=== PATIENT | female | born 1955 | race African-American/Black ===

== ENCOUNTER 2016-09-25 13:10 | Day surgery (SDC) | payer MEDICARE ==
[~2016-09-25] VITALS: Ht 167.6 cm; Wt 83.5 kg
--- NOTE | 2016-09-25 07:09 | PCM.HPANE ---
Patient Data Surgeon Admitting Provider: Attending Provider:Hien Mcdermott MD Primary Care Physician:Ulises Chou DO Other Provider:Chelly Squiresingham Anesthesia Reason for Visit Personal History Of Colonic Polyps Ht/WT & BMI Body Mass Index Allergies Coded Allergies: Sulfa (Sulfonamide Antibiotics) (Verified Allergy, Severe, 09/25/16) morphine (Verified Allergy, Severe, 09/25/16) doxycycline (Verified Allergy, Unknown, 09/25/16) Past Anesthesia History Anesthesia History: Denies:: Abnormal Airway, Anesthesia Reactions, Difficult Intubation, Fam Anesthesia Reaction, Fam Malignant Hypertherm, Malignant Hyperthermia Diabetes History Hx Diabetes?: No MRSA MRSA: No Medications Reported Medications Bupropion HCl (Zyban)150 Mg Tablet.er150 Mg PO 09/25/16 Trazodone 50 Mg Wyqvjg72 Mg PO HS Ref 0 09/25/16 Albuterol Sulfate (Proair Respiclick)90 Mcg Aer.pow.ba90 Mcg IH 09/25/16 Citalopram 20 Mg Slatns59 Mg PO DAILY Ref 0 09/25/16 Tiotropium Bow (Spiriva Respimat)1.25 Mcg/Actuation Mist.inhal4 Gm IH 09/24/16 Omeprazole 20 Mg Capsule.dr20 Mg PO BID Ref 0 09/24/16 Polyethylene Glycol 3350 (Miralax)17 Gm Powd.pack17 Gm PO 09/24/16 Docusate Sodium 250 Mg Jyrrmii594 Mg PO DAILY PRN For Constipation Ref 0 09/24/16 Albuterol Neb Soln 2.5 Mg/3 Ml Vial.neb2.5 Mg INHALATION Q4H PRN For Shortness of Breath Ref 0 09/24/16 Albuterol-Expunged Drug, Do Not Renew! 90 Mcg/Puff Hfa.aer.ad2 Puff INH Q4-6H PRN #18 GM For Wheezing or Shortness of Breath 07/21/13 Trazodone-Expunged Drug, Do Not Renew! 50 Mg Gklqwl48 Mg PO HS 06/13/13 Bupropion-SR 150 MG Tablet (Zyban-SR 150 MG Tablet)150 Mg Tabsr1 Tab PO BID DO NOT CRUSH TAB..TAKE WITH FOOD 06/13/13 Citalopram-Expunged Drug, Do Not Renew! 20 Mg Bfmbic64 Mg PO DAILY 06/13/13 Discontinued Reported Medications Morphine Sulfate 15 Mg Sospdl06 Mg PO q4hrs 09/24/16 Tramadol Hcl-Expunged Drug, Do Not Renew! (Ultram-Expunged Drug, Do Not Renew!) 50 Mg Yseyxc51 Mg PO Q6H For Mild Pain 10/21/13 Pantoprazole-Expunged Drug, Do Not Renew! (Protonix-Expunged Drug, Do Not Renew! )40 Mg Tablet.dr40 Mg PO DAILY 40 MG 07/21/13 Discontinued Scripts Rblab-Antzop-Suomtfhd Drug, Do Not Renew! (Symbicort 160/4.5mcg-Expunged Drug, Do Not R)1 Puff Inha2 Puff IH BID #1 MDI Ref 3 Prov:Jimy Arechiga MD 06/16/13 History History of ENT Problems?: Yes HEENT History: Positive for:: Cataracts (R. retinal hemorrhage. B. Cataract/ Lazer surgery. ) Dysphagia (RICE) Sinus Problem Denies:: Abnormal Airway Difficult Intubation Hearing Problem Hx of Heart Problems?: No Cardiovascular History: Positive for:: Irregular Heartbeat (mild palpitaton. ) Denies:: AICD Atrial Fibrillation Cardiac Surgery Chest Pain Congestive Heart Failure Edema Heart Murmur Hypertension Pacemaker Thrombophlebitis Valvular Heart Disease Hx of Respiratory Problem?: Yes Respiratory History: Positive for:: Asthma COPD Cough Dyspnea (with ADLs) Emphysema Hemoptysis (2012 (pneumonia - resolved)) Pneumonia Denies:: Chest Surgery Tuberculosis Hx Neurologic Problems?: Yes Neurological History: Positive for:: Headaches Denies:: Alzheimer's Disease CVA Dementia Dizziness Parkinson's Disease Seizures Hx of GI Problems?: Yes Gastrointestinal History: Positive for:: Diverticulitis Gastroesphageal Reflux Gastrointestinal Bleeding (Polypectomy. ) Heartburn Denies:: Cirrhosis Hepatitis Hiatal Hernia Rectal Bleeding Hx of Problems?: Yes Genitourinary History: Positive for:: Urinary Tract Infection Denies:: HX of Hemodialysis Kidney Stones HX of Peritoneal Dialysis: No Female Hx: Positive for:: Endometriosis Pelvic Inflammatory Denies:: Currently Problems with Breasts? Hx Musculoskeletal Problems?: Yes Musculoskeletal History: Positive for:: Back Injury (Fibromyalgia. ) Denies:: Joint Replacement Musculoskeletal Trauma Hx of Psycho/Social Problems?: Yes Psycho Social History: Positive for:: Anxiety Hx Depression Denies:: Bipolar Disorder Suicide Attempt Hx Surgeries?: Yes (GALLBLADDER, GALSTONE REMOVAL,HYSTERECTOMY,UTERINE PROLAPSE ,LAMI, L SHOULD) Hx Any Other Health Problems?: Yes Other History: Positive for:: Hospitalization Denies:: Cancer Endocrine Disease Thyroid Disease History Blood Transfusions: Positive for:: Blood Transfusions Denies:: Blood Transfuse Reaction Hx Diabetes: No Hx Alcohol Use: Yes (OCCAS)Hx Substance Use: No Smoking Status: Current Every Day Smoker Light Tobacco Smoker Have You Smoked inLast 12 mo: Yes Stop/Bang CONSTANTINO Risk Assessment: Low Risk, <3 Yes Risk Assessment Category Category 1A: Patient has history of documented sleep apnea, and HAS NOT received any narcotic, sedative or anesthesia administration during this stay. Category 1B: Patient has history of documented sleep apnea, and HAS received any narcotic , sedative or anesthesia administration during this stay Category 2: Patient has SUSPECTED Obstructive Sleep Apnea, and HAS received any narcotic , sedative or anesthesia administration during this stay. Category 3: Patient has SUSPECTED Obstructive Sleep Apnea and HAS NOT received narcotic, sedative or anesthesia administration during this stay. Category 4: Outpatient in Procedural Areas with known sleep apnea or who screen positive for High Risk via the STOP/BANG questionnaire. Exam Exam General Appearance: Alert, Oriented X3, Cooperative, No Acute Distress HEENT/AIRWAY: MP 2 Lungs: Clear to Auscultation, Normal Air Movement Heart: Exam Unremarkable, Regular Rate/Rhythm, No Murmurs/Rubs/Gallops Plan Impression Patient chart reviewed, patient interviewed and anesthestic plan with risks, benefits, and alternatives discussed, and informed consent obtained. NPO Status: greater than 8 hours for solids and greater than 2 hours for clear liquids ASA Physical Status: ASA2 Mod Systemic Disease Anesthetic Plan: GA Bene/Risks/Altern/Consents: Yes HP Complete Prior to Induction: Yes Malik Landaverde MD Sep 25, 2016 07:09
[~2016-09-25 13:10] MED LIST: ALBU2.5V4 INHALATION; ALBUTHFA INH; BPR150TCR PO; CITA20TA2 PO; DOCU250C2 PO; Lactated Ringer's 1,000 ML IV ONE; MORP15TA PO; OMEP20CA11 PO; POLY17PO6 PO; SYMINH IH; TIOT4MIS5 IH; TRAM-69 PO; TRAZ50TA52 PO
[2016-09-25] MEDS ORDERED: fentaNYL-PF 50 mCg/mL 2 mL Inj ONE (13:11)
[2016-09-25] MEDS ORDERED: Propofol 10,000 mCg/mL 20 mL Inj ONE (13:11)
[2016-09-25 13:34] VITALS: BP 118/69; PULSE 83; RESP 16; O2SAT 94
[2016-09-25] MEDS ORDERED: BUPR150T9 PO (14:53)
[2016-09-25] MEDS ORDERED: ALBU90AE IH (14:53)
[2016-09-25] MEDS ORDERED: TRAZ-115 PO (14:53)
[2016-09-25] MEDS ORDERED: CITA20TA11 PO (14:53)
[2016-09-25] MEDS ORDERED: Lactated Ringer's 1,000 ML IV SCH (15:04)
--- NOTE | 2016-09-25 15:04 | PCM.ANEP1 ---
Post Anesthesia Phase 1 PACU Phase 1 Assessment Vital Signs Vital Signs Date Time Temp Pulse Resp B/P Pulse Ox O2 Delivery O2 Flow Rate FiO2 09/25/16 13:34 36.8 83 16 118/69 94 Room Air Anesthetic Administered: MAC Level of Alertness: Awake, talking HOLDEN's with Equal Strength: Yes Pain: No Oxygen Delivery: Nasal Cannula Lungs: Clear to Auscultation, Normal Air Movement Malik Landaverde MD Sep 25, 2016 15:04
[2016-09-25] MEDS ORDERED: Ondansetron 2 mg/mL 2 mL Inj IVPUSH PRN (15:05)
[2016-09-25] MEDS ORDERED: MetoCLOpramide 5 mg/mL 2 mL Inj IVPUSH PRN (15:05)
--- NOTE | 2016-09-25 15:05 | PCM.ANEP2 ---
Post Anesthesia Evaluation ASA/CMS Post Anesthesia VS in Patient's Normal Range?: Yes Resp Stable; Airway Patent?: Yes CV Function & Hydration Stable: Yes Mental Status Recovered?: Yes Pain control Satisfactory?: Yes N/V Control Satisfactory?: Yes Malik Landaverde MD Sep 25, 2016 15:05
[2016-09-25 15:07] VITALS: BP 108/67; PULSE 75; RESP 16; O2SAT 95
[2016-09-25 15:17] VITALS: BP 123/69; PULSE 74; RESP 16; O2SAT 94
[2016-09-25 15:27] VITALS: BP 104/70; PULSE 86; RESP 16; O2SAT 95
--- NOTE | 2016-09-25 15:41 | ENDO ---
[address] [address] ENDOSCOPY PROCEDURE PATIENT: OBED RIGGS : 1955 MR#: [id number] ADMIT: 09/25/2016 JOB ID: [id number] DATE OF SERVICE: 09/25/2016 PROCEDURE PERFORMED: Colonoscopy. INDICATIONS: History of colon polyps. ASA CLASSIFICATION, MALLAMPATI SCORE AND MEDICATIONS: The patient's ASA classification, Mallampati score and medications as per anesthesia report. INSTRUMENT USED: [id number]-[id number]. PREPARATION QUALITY: Fair. PROCEDURE DETAILS: After informed consent was obtained, the patient was brought into the GI suite, where she was placed on oxygen via nasal cannula and monitored with continuous pulse oximeter, telemetry, and blood pressure monitoring. A time-out was performed. Then, she was placed in the left lateral decubitus position and medications were administered for sedation. Digital rectal exam was performed which was unremarkable. The colonoscope was then inserted into the rectum and advanced under direct visualization to the cecum, which was identified by the presence of the ileocecal valve and appendiceal orifice. Once the cecum was reached, the colonoscope was withdrawn back into the rectum, as the mucosa and lumen were examined. In the rectum, retroflexion was performed. Following retroflexion, remaining air in the rectum was suctioned, and procedure was completed. FINDINGS: 1. Scattered diverticula were seen throughout the left colon. 2. Small internal hemorrhoids were noted on retroflexion. IMPRESSION: 1. Left-sided diverticulosis. 2. Small internal hemorrhoids. RECOMMENDATIONS: 1. Fiber-rich diet. 2. Follow up in GI clinic as needed. 3. Repeat colonoscopy in five years. COMPLICATIONS: None. ESTIMATED BLOOD LOSS: Zero.
[2017-01-13] MEDS ORDERED: WARF5TAB7 PO ×2 (14:11)
[2017-01-13] MEDS ORDERED: MORP15TA PO (14:11)
== END 2016-09-25 23:59 | disposition home or self-care (01) ==
LOC: END 13:10
PROVIDERS: ATTEND Internal Medicine Gastroenterology
DX: Z12.11 Encounter for screening for malignant neoplasm of colon (principal); Z86.010 Personal history of colon polyps; K57.30 Diverticulosis of large intestine without perforation or abscess without bleeding; K64.8 Other hemorrhoids; K59.00 Constipation, unspecified; J44.9 Chronic obstructive pulmonary disease, unspecified; F32.9 Major depressive disorder, single episode, unspecified; K21.9 Gastro-esophageal reflux disease without esophagitis; M47.896 Other spondylosis, lumbar region; J45.909 Unspecified asthma, uncomplicated; F41.9 Anxiety disorder, unspecified; F17.210 Nicotine dependence, cigarettes, uncomplicated; J43.9 Emphysema, unspecified
CPT/HCPCS: G0105; J2250; J3010; J7120

== ENCOUNTER 2016-11-07 11:52 | Emergency (ER) | payer MEDICARE ==
[~2016-11-07] VITALS: Ht 167.6 cm; Wt 88.0 kg
[~2016-11-07 11:52] MED LIST changes: +ALBU90AE IH; +BUPR150T9 PO; +CITA20TA11 PO; -Lactated Ringer's 1,000 ML IV ONE; -MORP15TA PO; -SYMINH IH; -TRAM-69 PO; +TRAZ-115 PO
[2016-11-07 12:16] VITALS: BP 101/67; PULSE 74; RESP 16; O2SAT 97
--- NOTE | 2016-11-07 12:28 | ED.REPORT ---
HPI-General Illness Date of Service Nov 07, 2016 ED Provider: Micheal Blum MD The patient is a 61 year old female with history of COPD on 2 L, remote pulmonary embolism (not currently on blood thinners), spinal stenosis, fibromyalgia, GERD, and degenerative disc disease, who presents to the emergency department with multiple complaints. She complains of left lower extremity swelling, shortness of breath/wheezing, chronic back pain, head pain ( "feels like something is draining out of my brain"), vague, mild abdominal pain (today), and generalized weakness. Her symptoms are intermittent. At this time she is feeling okay. Her main concern today is the lower extremity swelling. She denies chest pain or pleuritic pain. She denies recent surgeries or long periods of immobilization. She has been noticing that she is wheezing more and feels that her COPD is acting up. She has not been on any steroids recently. Nursing Notes Stated Complaint: LEFT ANKLE PAIN Chief Complaint: Female Abdominal Pain Nursing Notes Reviewed: Yes Allergies: Coded Allergies: Sulfa (Sulfonamide Antibiotics) (Verified Allergy, Severe, 11/07/16) doxycycline (Verified Allergy, Unknown, 11/07/16) Scheduled Bupropion-SR 150 MG Tablet (Zyban-SR 150 MG Tablet) 150 Mg Tabsr 1 TAB PO BID DO NOT CRUSH TAB..TAKE WITH FOOD Citalopram (Citalopram) 20 Mg Tablet 20 MG PO DAILY Citalopram-Expunged Drug, Do Not Renew! (Citalopram-Expunged Drug, Do Not Renew! ) 20 Mg Tablet 20 MG PO DAILY Omeprazole (Omeprazole) 20 Mg Capsule.dr 20 MG PO BID Prednisone (PredniSONE) 20 Mg Tablet 40 MG PO DAILY Trazodone (Trazodone) 50 Mg Tablet 50 MG PO HS Trazodone-Expunged Drug, Do Not Renew! (Trazodone-Expunged Drug, Do Not Renew!) 50 Mg Tablet 50 MG PO HS Scheduled PRN Albuterol Neb Soln (Albuterol Neb Soln) 2.5 Mg/3 Ml Vial.neb 2.5 MG INHALATION Q4H PRN PRN For Shortness of Breath Albuterol-Expunged Drug, Do Not Renew! (Albuterol-Expunged Drug, Do Not Renew!) 90 Mcg/Puff Hfa.aer.ad 2 PUFF INH Q4-6H PRN PRN For Wheezing or Shortness of Breath Docusate Sodium (Docusate Sodium) 250 Mg Capsule 100 MG PO DAILY PRN PRN For Constipation Miscellaneous Medications Albuterol Sulfate (Proair Respiclick) 90 Mcg Aer.pow.ba 90 MCG IH Bupropion HCl (Zyban) 150 Mg Tablet.er 150 MG PO Polyethylene Glycol 3350 (Miralax) 17 Gm Powd.pack 17 GM PO Tiotropium Purvis (Spiriva Respimat) 1.25 Mcg/Actuation Mist.inhal 4 GM IH General Time Seen by MD: 12:27 Chief Complaint Multip medical complaints Hx Obtained From: Patient Arrived By: Walk-in Sudden in Onset?: No Symptom Duration: Since onset Location: : Abdomen: Head Quality: Painful, Sharp Severity: Current: Mild Severity: Maximum: Moderate Recent Healthcare: No recent hospitalization Past Medical History Past Medical History 1. COPD. 2. Spinal stenosis. 3. Fibromyalgia. 4. History of endometriosis, status post hysterectomy and bilateral oophorectomy. 5. GERD. 6. Questionable history of peptic ulcer disease. 7. History of retinal hemorrhage status post multiple eye surgeries. 8. Degenerative joint disease. 9. Hx of pulmonary embolism Reports: COPD Past Surgical History Rotator Cuff surgery Cholecystectomy with subsequent gallstone removal Hysterectomy and bilateral oophorectomy Multiple eye surgeries Vaginal prolapse status post surgical repair in 1984. Status post cataract removal in 2012 bilaterally. Status post colonoscopy in 2009 with polypectomy. Lumbar sugery in 2006 Family History Noncontributory Smoking History Current Every Day Smoker, Light Tobacco Smoker Social History Alcohol Use: Denies alcohol use Other Social History: Local resident Review of Systems Full Review of Systems Constitutional: Reports: Weakness - generalized Respiratory: Reports: Shortness of breath, Denies: Pleuritic pain Cardiovascular: Denies: Chest pain GI: Reports: Abdominal pain Musculoskeletal: Reports: Back pain, Extremity swelling Neurologic: Reports: Headache Complete sys rev & neg: except as marked. Physical Exam Vital Signs Vital Signs Date Time Temp Pulse Resp B/P Pulse Ox O2 Delivery O2 Flow Rate FiO2 11/07/16 12:16 36.4 74 16 101/67 97 Nasal Cannula Initial VS: Reviewed Head / Eyes: Atraumatic, Normocephalic, PERRL ENT: Mucous membranes moist, Conjunctiva normal, No scleral icterus Neck: Supple, Non-tender, Full range of motion Abdomen / GI: Soft, Non-tender, No guarding, No rebound, No distention Extremities: Vascular intact, Neuro intact Skin: Warm, Dry, No cyanosis Neurologic: Alert, Oriented, Nonfocal Psychiatric: Mood/affect normal, Behavior normal, Normal thought content General/Constitutional: Awake, Alert, Cooperative Respiratory / Chest: No respiratory distress Diminished Breath Sounds: Positive: Decreased bilateral Wheezing / Retractions: Positive: Wheezing moderate (scattered) Cardiovascular: Heart rate NL, Regular rhythm, Heart sounds NL, No murmurs, No rubs, Cap refill not delayed, Peripheral circulation NL Lower Extremity / Pelvis / MS: Neurologic intact, Vascular intact On the right side there is no calf swelling or tenderness. The left calf is slightly swollen compared to the right with some tenderness. Interpretation & Diagnostics Lab Results Interpretation Result Diagram: 11/07/16 1319 11/07/16 1319 Test 11/07/16 13:19 White Blood Count 3.6th/mm3 (3.8-10.1) Red Blood Count 4.38mil/mm3 (3.90-5.20) Hemoglobin 11.8g/dL (12.0-15.6) Hematocrit 37.0% (35.0-46.0) Mean Corpuscular Volume 84.5fL (81-100) Mean Corpuscular Hemoglobin 26.9pg (27.0-35.0) Mean Corpuscular Hemoglobin Concent 31.9% (32.0-37.0) Red Cell Distribution Width 14.3% (12.3-15.4) Platelet Count 186bil/L (150-400) Neutrophils (%) (Auto) 41.7% (40-74) Lymphocytes (%) (Auto) 43.9% (14-46) Monocytes (%) (Auto) 9.7% (4-12) Eosinophils (%) (Auto) 3.3% (0-5) Basophils (%) (Auto) 1.1% (0-3) Prothrombin Time 10.0sec (8.1-12.5) Prothromb Time International Ratio 0.94ratio Sodium Level 137mEq/L (134-144) Potassium Level 4.4mEq/L (3.5-5.2) Chloride Level 99mEq/L (97-108) Carbon Dioxide Level 25mmol/L (18-29) Blood Urea Nitrogen 9mg/dL (8-27) Creatinine 0.75mg/dL (0.57-1.00) Estimat Glomerular Filtration Rate 101mL/min (>59) Glucose Level 90mg/dL (60-99) Calcium Level 9.4mg/dL (8.5-10.1) Total Bilirubin 0.6mg/dL (0.0-1.2) Aspartate Amino Transf (AST/SGOT) 26U/L (0-50) Alanine Aminotransferase (ALT/SGPT) 16U/L (0-32) Alkaline Phosphatase 106U/L (25-165) Troponin T < 0.010ug/L (0.0-0.011) Pro-B-Type Natriuretic Peptide 34.65pg/mL (0-287) Total Protein 7.1g/dL (6.4-8.4) Albumin 3.9g/dL (3.4-5.0) ECG Interpretation ECG Interpretation: Sinus rhythm with a rate of 64 bpm Anteroseptal Q waves present No acute ST segment or T wave abnormalities No prior EKGs available for comparison Time: 13:14 Interpreted by: ED physician X-Ray Chest Interpretation Chest Xray Interpretation: IMPRESSION: No acute cardiopulmonary disease. Dictated by: Jared CHATMAN Interpreted: Belinda Hernandez MD on 11/07/2016 at 14:20 Interpretation / Wet Read by: Interpret - Radiologist Re-Eval/Medical Decision Med Decision/Clinical Course The patient is a 61 year old female with history of COPD on 2 L, remote pulmonary embolism (not currently on blood thinners), spinal stenosis, fibromyalgia, GERD, and degenerative disc disease, who presents to the emergency department with multiple complaints. She complains of left lower extremity swelling, shortness of breath/wheezing, chronic back pain, head pain ( "feels like something is draining out of my brain"), vague, mild abdominal pain (today), and generalized weakness. Her symptoms are intermittent. At this time she is feeling okay. Her main concern today is the lower extremity swelling. She denies chest pain or pleuritic pain. She denies recent surgeries or long periods of immobilization. She has been noticing that she is wheezing more and feels that her COPD is acting up. She has not been on any steroids recently. Emergency department the patient is afebrile with stable vital signs and in no apparent distress. She has good oxygen saturation on 2 L by nasal cannula which is her baseline oxygen requirement. Examination of the left lower extremity reveals mild Swelling/tenderness. Treated with Duonebs and prednisone. Thereafter, she reported significant symptomatic improvement. Las: WBC 3.6, hct 37, coag studies normal, CMP unremarkable, troponin negative, BNP WNL. CXR: Obtained, reviewed and interpreted by myself shows no evidence of infiltrates, effusions or pneumothorax. Cardiac and mediastinal silhouette normal. No bony or soft tissue abnormalities. EKG was obtained and interpreted by myself as documented above. US: negative for DVT Overall presentation seems most consistent with COPD exacerbation. She responded nicely to bronchodilators and steroids. She is without tachycardia, tachypnea and ultrasound reveals no DVT. My suspicion for pulmonary embolism is relatively low. The overall clinical picture does not support diagnosis of pulmonary embolism and I do not feel that obtaining a CT angiogram of the chest is immediately indicated. No evidence of pneumonia. Overall presentation not consistent with acute coronary syndrome and initial EKG and troponin are reassuring. At this time, I feel the patient is appropriate for discharge home. She will be treated with a five-day course of prednisone has been advised to continue her nebulizer treatments. She will follow up closely with her primary care physician. Prior to discharge follow-up and return precautions were reviewed in detail with the patient who verbalized understanding and agreement with the plan. The patient was discharged in stable condition. Source of Hx: Old records Time of Eval: 14:48 Re-Evaluation/Progress Note: Rechecked the patient. Discussed results, diagnosis, and plan for discharge. All questions were addressed. Counseled Regarding: Diagnosis, Lab results Discharge & Departure Primary Impression: Left leg swelling Additional Impressions: COPD exacerbation History of pulmonary embolism Back pain Back pain location: low back pain Chronicity: chronic Back pain laterality : unspecified Sciatica presence: with sciatica presence unspecified Qualified Code: M54.5 - Low back pain Disposition: Home Discharge Condition All VS Reviewed: Yes Condition: Stable Additional Instructions: hailey you for seeking care at the emergency room. Our primary goal today in the ED was to evaluate you for any life-threatening conditions. Your evaluation was reassuring. Please see no signs that you have a blood clot in your leg today. I think you are having a COPD exacerbation and I would like you to complete the course of prednisone as prescribed. He should continue to use her home nebulizers. You should follow-up with your primary doctor in the next week. You should return to the ED immediately if you develop any worsening symptoms, swelling, fevers, vomiting, cough, shortness of breath, chest pain, lightheadedness, weakness or any other concerning signs or symptoms. Thank you for letting us partake in your care today. Referrals: Ulises Chou DO (PCP) Scribe Attestation Portions of this note were transcribed by Maddy Chamorro. I, Dr. Blum personally performed the history, physical exam and medical decision-making; I reviewed and confirmed the accuracy of the information in the transcribed note. Signed by: Jacinto Miramontes, 11/07/2016 at 1500. copies to: Ulises Chou Beck O MD Nov 07, 2016 12:28 Maddy Chamorro Nov 07, 2016 12:34
[2016-11-07] MEDS ORDERED: 0.9% Sodium Chloride 1,000 ML IV ONE (13:00)
[2016-11-07] MEDS ORDERED: Albuterol-Ipratropium 3 mL Inhalation Solution NEB ONE (13:00)
[2016-11-07] MEDS ORDERED: predniSONE 20 mg Tablet PO ONE (13:00)
[2016-11-07 13:40] VITALS: BP 113/69; PULSE 65; RESP 13; O2SAT 100
[2016-11-07 13:42] LABS: BASOPHILS % (AUTO) 1.1 % (0-3); EOSINOPHILS % (AUTO) 3.3 % (0-5); MONOCYTES % (AUTO) 9.7 % (4-12); Mean Corpuscular Hemoglobin 26.9 pg (27.0-35.0); Mean Corpuscular Volume 84.5 fL (81-100); NEUTROPHILS % (AUTO) 41.7 % (40-74); Platelet Count 186 bil/L (150-400)
[2016-11-07 14:02] LABS: INR 0.94 ratio
[2016-11-07 14:18] LABS: TROPONIN T < 0.010 ug/L (0.0-0.011)
--- NOTE | 2016-11-07 14:20 | DRSVH ---
PROCEDURE: X-RAY CHEST, TWO VIEWS ([id number]) INDICATIONS: SHORTNESS OF BREATH TECHNIQUE: 2 views of the chest were acquired. COMPARISON: [facility], CR, XR CHEST 2VW, 09/30/2016, 12:09. FINDINGS: Surgical changes and devices: None. Lungs and pleura: No pleural effusions or pneumothorax. Lungs are clear. Mediastinum: Mediastinal contours are normal. Heart size is normal. Bones and chest wall: No suspicious bony abnormalities. Soft tissues appear unremarkable. IMPRESSION: No acute cardiopulmonary disease. Dictated by: Jared Mir [facility] Interpreted: Belinda Hernandez MD on 11/07/2016 at 14:20 Transcribed by: SANDEEP on 11/07/2016 at 14:20 Approved by: Belinda Hernandez MD, PhD on 11/07/2016 at 17:04
[2016-11-07] MEDS ORDERED: PRE20 PO (14:49)
[2016-11-07 15:57] VITALS: BP 125/75; PULSE 72; RESP 16; O2SAT 96
--- NOTE | 2016-11-07 15:58 | DRSVH ---
PROCEDURE: US VEINOUS LEG DUPLEX UNILATERAL, LEFT INDICATIONS: assess for dvt TECHNIQUE: Real-time imaging, as well as color and pulse Doppler interrogation, were performed of the lower extr emity deep veins from the inguinal ligament to the popliteal fossa. COMPARISON: None. FINDINGS: The deep veins are normally compressible, and free of intraluminal thrombus. Color and pu lse Doppler demonstrate normal phasic intraluminal flow. There is normal augmentation response to di stal compression maneuver. IMPRESSION: Negative for deep venous thrombosis. Note: Concordant preliminary findings given by the dinkey dispatcher upon the completion of the examination to Dr. Blum. Dictated by: Nino Cabrera M.D. on 11/07/2016 at 14:55 Approved by: Nino Cabrera M.D. on 11/07/2016 at 14:56
[2017-01-13] MEDS ORDERED: WARF5TAB7 PO ×2 (14:11)
[2017-01-13] MEDS ORDERED: MORP15TA PO (14:11)
== END 2016-11-07 14:59 | disposition home or self-care (01) ==
LOC: SED 11:52
DX: M79.89 Other specified soft tissue disorders (principal); J44.1 Chronic obstructive pulmonary disease with (acute) exacerbation; M54.5 Low back pain; K21.9 Gastro-esophageal reflux disease without esophagitis; F17.200 Nicotine dependence, unspecified, uncomplicated; Z88.2 Allergy status to sulfonamides; Z88.1 Allergy status to other antibiotic agents; Z86.711 Personal history of pulmonary embolism
CPT/HCPCS: 36415; 71020; 80053; 83880; 84484; 85025; 85610; 93005; 93970; 94664; 96360; 96361; 99285; J7030; J7620

== ENCOUNTER 2016-11-09 04:14 | Inpatient (IN) | payer MEDICARE ==
[2016-11-09] VITALS (12 sets, daily range): BP systolic 103–148; BP diastolic 66–83; PULSE 60–89; RESP 16–22; O2SAT 94–100
[~2016-11-09] VITALS: Ht 167.6 cm; Wt 86.3 kg
[~2016-11-09 04:14] MED LIST changes: +PRE20 PO
--- NOTE | 2016-11-09 04:54 | ED.REPORT ---
HPI- Female Date of Service Nov 09, 2016 ED Provider: Tad Coffey MD Nursing Notes Stated Complaint: POSS BLOOD CLOT/ LEFT ARM Chief Complaint: General Complaint Nursing Notes Reviewed: Yes Allergies: Coded Allergies: Sulfa (Sulfonamide Antibiotics) (Verified Allergy, Severe, 11/07/16) doxycycline (Verified Allergy, Unknown, 11/07/16) Scheduled Bupropion-SR 150 MG Tablet (Zyban-SR 150 MG Tablet) 150 Mg Tabsr 1 TAB PO BID DO NOT CRUSH TAB..TAKE WITH FOOD Citalopram (Citalopram) 20 Mg Tablet 20 MG PO DAILY Citalopram-Expunged Drug, Do Not Renew! (Citalopram-Expunged Drug, Do Not Renew! ) 20 Mg Tablet 20 MG PO DAILY Omeprazole (Omeprazole) 20 Mg Capsule.dr 20 MG PO BID Prednisone (PredniSONE) 20 Mg Tablet 40 MG PO DAILY Trazodone (Trazodone) 50 Mg Tablet 50 MG PO HS Trazodone-Expunged Drug, Do Not Renew! (Trazodone-Expunged Drug, Do Not Renew!) 50 Mg Tablet 50 MG PO HS Scheduled PRN Albuterol Neb Soln (Albuterol Neb Soln) 2.5 Mg/3 Ml Vial.neb 2.5 MG INHALATION Q4H PRN PRN For Shortness of Breath Albuterol-Expunged Drug, Do Not Renew! (Albuterol-Expunged Drug, Do Not Renew!) 90 Mcg/Puff Hfa.aer.ad 2 PUFF INH Q4-6H PRN PRN For Wheezing or Shortness of Breath Docusate Sodium (Docusate Sodium) 250 Mg Capsule 100 MG PO DAILY PRN PRN For Constipation Miscellaneous Medications Albuterol Sulfate (Proair Respiclick) 90 Mcg Aer.pow.ba 90 MCG IH Bupropion HCl (Zyban) 150 Mg Tablet.er 150 MG PO Polyethylene Glycol 3350 (Miralax) 17 Gm Powd.pack 17 GM PO Tiotropium [place] (Spiriva Respimat) 1.25 Mcg/Actuation Mist.inhal 4 GM IH General Time Seen by : 05:16 Past Medical History Past Medical History 1. COPD. 2. Spinal stenosis. 3. Fibromyalgia. 4. History of endometriosis, status post hysterectomy and bilateral oophorectomy. 5. GERD. 6. Questionable history of peptic ulcer disease. 7. History of retinal hemorrhage status post multiple eye surgeries. 8. Degenerative joint disease. 9. Hx of pulmonary embolism Reports: COPD Past Surgical History Rotator Cuff surgery Cholecystectomy with subsequent gallstone removal Hysterectomy and bilateral oophorectomy Multiple eye surgeries Vaginal prolapse status post surgical repair in 1984. Status post cataract removal in 2011 bilaterally. Status post colonoscopy in 2009 with polypectomy. Lumbar sugery in 2006 Family History Noncontributory Smoking History Current Every Day Smoker, Light Tobacco Smoker Social History Alcohol Use: Denies alcohol use Other Social History: Local resident Review of Systems Musculoskeletal: Reports: Extremity pain, Extremity swelling Complete sys rev & neg: except as marked. Physical Exam Initial Vital Signs Vital Signs (First) Date Time Temp Pulse Resp B/P Pulse Ox O2 Delivery O2 Flow Rate FiO2 11/09/16 04:19 36.6 86 16 127/83 99 Nasal Cannula 2 Discharge & Departure Referrals: Ulises Chou DO (PCP) Tad Coffey MD Nov 09, 2016 04:54 Katherine Mcconnell Nov 09, 2016 05:27
--- NOTE | 2016-11-09 06:21 | ED.REPORT ---
HPI-Extremity Problem Upper Date of Service Nov 09, 2016 ED Provider: Juarez Brandon DO Pt is a 61 y.o. female with a hx of COPD and PE who presents to the ED c/o left arm swelling. Pt reports that she has noticed the swelling for several weeks but she states it was worse this morning and appeared red. She also notes increased SOB, claiming that she has had to use her rescue inhaler 3 times in the past 12 hours and she typically only uses it twice a day. Pt is on home O2. She was seen in the ER on 11/07/16 for left leg swelling and a DVT work-up was performed, it was negative and she was discharged home. She denies current blood thinners. She does have a remote history of pulmonary embolism which occurred postoperatively, she was treated with Coumadin for an extended period of time and has subsequently had Coumadin discontinued. Pt is a poor historian. Nursing Notes Stated Complaint: POSS BLOOD CLOT/ LEFT ARM Chief Complaint: General Complaint Nursing Notes Reviewed: Yes Allergies: Coded Allergies: Sulfa (Sulfonamide Antibiotics) (Verified Allergy, Severe, 11/07/16) doxycycline (Verified Allergy, Unknown, 11/07/16) Scheduled Bupropion-SR 150 MG Tablet (Zyban-SR 150 MG Tablet) 150 Mg Tabsr 1 TAB PO BID DO NOT CRUSH TAB..TAKE WITH FOOD Citalopram (Citalopram) 20 Mg Tablet 20 MG PO DAILY Citalopram-Expunged Drug, Do Not Renew! (Citalopram-Expunged Drug, Do Not Renew! ) 20 Mg Tablet 20 MG PO DAILY Omeprazole (Omeprazole) 20 Mg Capsule.dr 20 MG PO BID Prednisone (PredniSONE) 20 Mg Tablet 40 MG PO DAILY Trazodone (Trazodone) 50 Mg Tablet 50 MG PO HS Trazodone-Expunged Drug, Do Not Renew! (Trazodone-Expunged Drug, Do Not Renew!) 50 Mg Tablet 50 MG PO HS Scheduled PRN Albuterol Neb Soln (Albuterol Neb Soln) 2.5 Mg/3 Ml Vial.neb 2.5 MG INHALATION Q4H PRN PRN For Shortness of Breath Albuterol-Expunged Drug, Do Not Renew! (Albuterol-Expunged Drug, Do Not Renew!) 90 Mcg/Puff Hfa.aer.ad 2 PUFF INH Q4-6H PRN PRN For Wheezing or Shortness of Breath Docusate Sodium (Docusate Sodium) 250 Mg Capsule 100 MG PO DAILY PRN PRN For Constipation Miscellaneous Medications Albuterol Sulfate (Proair Respiclick) 90 Mcg Aer.pow.ba 90 MCG IH Bupropion HCl (Zyban) 150 Mg Tablet.er 150 MG PO Polyethylene Glycol 3350 (Miralax) 17 Gm Powd.pack 17 GM PO Tiotropium [place] (Spiriva Respimat) 1.25 Mcg/Actuation Mist.inhal 4 GM IH General Time Seen by MD: 06:20 Chief Complaint Arm injury left Hx Obtained From: Patient Arrived By: Walk-in Onset Occurred: Onset unknown Severity: Current: No pain currently Past Medical History Past Medical History 1. COPD. 2. Spinal stenosis. 3. Fibromyalgia. 4. History of endometriosis, status post hysterectomy and bilateral oophorectomy. 5. GERD. 6. Questionable history of peptic ulcer disease. 7. History of retinal hemorrhage status post multiple eye surgeries. 8. Degenerative joint disease. 9. Hx of pulmonary embolism Reports: COPD Past Surgical History Rotator Cuff surgery Cholecystectomy with subsequent gallstone removal Hysterectomy and bilateral oophorectomy Multiple eye surgeries Vaginal prolapse status post surgical repair in 1984. Status post cataract removal in 2011 bilaterally. Status post colonoscopy in 2009 with polypectomy. Lumbar sugery in 2006 Family History Noncontributory Smoking History Current Every Day Smoker, Light Tobacco Smoker Social History Alcohol Use: Denies alcohol use Other Social History: Local resident Review of Systems Musculoskeletal: Reports: Extremity swelling (Left arm) Complete sys rev & neg: except as marked. Respiratory: Reports: Shortness of breath Physical Exam Initial Vital Signs Vital Signs (First) Date Time Temp Pulse Resp B/P Pulse Ox O2 Delivery O2 Flow Rate FiO2 11/09/16 04:19 36.6 86 16 127/83 99 Nasal Cannula 2 Initial VS: Reviewed Head / Eyes: Atraumatic, Normocephalic Abdomen / GI: No distention Lower Extremities: Vascular intact, Neuro intact Skin: Warm, Dry, No cyanosis Neurologic: Alert, Oriented, Nonfocal Psychiatric: Mood/affect normal, Behavior normal, Normal thought content General/Constitutional: Awake, Alert, No acute distress, Well appearing, Well developed, Well hydrated, Well nourished, Not toxic appearing Appearance / Presentation: Positive: Obese Neck: Atraumatic, Supple Respiratory / Chest: Atraumatic, Breath sounds NL, Breath sounds = bilat, No respiratory distress Pt is wearing a nasal canulla Cardiovascular: Heart rate NL, Regular rhythm, Heart sounds NL, Peripheral circulation NL Upper Extremity / MS: Atraumatic, No erythema, No deformity, Neurologic intact , Vascular intact Mild fullness of left anticubital fossa No significant asymmetric edema to bilateral arms Interpretation & Diagnostics Lab Results Interpretation Test 11/09/16 08:53 Hold Vergara Top Tube Received (Received) ECG Interpretation Time: 08:55 Interpreted by: ED physician Normal ECG Interpretation: Normal rate (59), Normal sinus rhythm, No change from prior ECGs (11/07/16) US Soft Tissue/Musculoskeletal IMPRESSION: No evidence of left upper extremity DVT. Dictated by: Gino Donis M.D. on 11/09/2016 at 8:33 Approved by: Gino Donis M.D. on 11/09/2016 at 8:33 CT Chest Interpretation IMPRESSION: 1. Right sided pulmonary emboli as described above. 2. Severe emphysema. 3. Findings discussed with Dr. Brandon on 11.09.16 at 0830 hrs. Dictated by: Gino Donis M.D. on 11/09/2016 at 8:29 Approved by: Gino Donis M.D. on 11/09/2016 at 8:33 Re-Eval/Medical Decision Med Decision/Clinical Course Likely acute pulmonary embolism. Patient will be admitted. Source of Hx: Old records Re-Evaluation/Progress : Time of Eval: 08:46 Re-Evaluation/Progress Note: Pt rechecked. Discussed CT results and plan for admit, pt understands and agrees with plan. Consultation : Referral / Consult Name: Prince Sheth MD Call Returned at: 09:02 Grain Blender: Will see patient, Agrees with eval, Agrees with plan, Accepts admit Note: Discussed pt condition, accepts admit. Counseled Regarding: Diagnosis, Lab results, Need for admission Discharge & Departure Impression: Primary Impression: Pulmonary embolism Pulmonary embolism type: other Chronicity: acute Disposition: ADMITTED TO HOSPITAL Discharge Condition All VS Reviewed: Yes Condition: Improved Referrals: Ulises Chou DO (PCP) Scribe Attestation Portions of this note were transcribed by Abraham Velasquez I Dr. Brandon personally performed the history, physical exam and medical decision-making; I reviewed and confirmed the accuracy of the information in the transcribed note. Signed by: Jacinto Arnold, 11/09/16 and 0911. copies to: Ulises Chou Timothy S DO Nov 09, 2016 06:21 ABRAHAM GRIMALDO Nov 09, 2016 06:28
--- NOTE | 2016-11-09 08:35 | DRSVH ---
PROCEDURE: CT ANGIO CHEST PULMONARY EMBOLISM ([id number]) INDICATIONS: dyspnea, history of PE TECHNIQUE: After the administration of intravenous contrast, 2 mm thick sections acquired from the pulmonary api ham to the posterior costophrenic angles. 3-dimensional maximum intensity projection (MIP) coronal a nd sagittal reformats were then acquired through the thorax. For radiation dose reduction, the follo wing was used: automated exposure control, adjustment of mA and/or kV according to patient size. COMPARISON: [facility], CT, CT CHEST WO CON, 05/01/2016, 11:03. FINDINGS: Image quality: Excellent. Pulmonary arteries: Pulmonary arteries are normal in size. There are filling defects seen within the right distal main pulmonary artery, extending into the segmental branches of the right upper lobe. Lungs and pleura: Severe emphysema. Biapical blebs. No pleural effusions or pneumothorax. Central an d peripheral airways are patent. Mediastinum: Heart size is normal, without pericardial effusion. No mediastinal or hilar adenopathy . Thoracic aorta is normal in caliber and enhancement. Esophagus is normal in caliber, without hiat al hernia. Bones and chest wall: No suspicious bony lesions. Ribs and thoracic spine appear intact throughout. Thyroid gland is within normal limits. No axillary or supraclavicular adenopathy. Abdomen: Visualized upper abdominal solid organs appear normal in the early arterial phase of enhanc ement. IMPRESSION: 1. Right sided pulmonary emboli as described above. 2. Severe emphysema. 3. Findings discussed with Dr. Brandon on 11.09.16 at 0830 hrs. Dictated by: Gino Donis M.D. on 11/09/2016 at 8:29 Approved by: Gino Donis M.D. on 11/09/2016 at 8:33
--- NOTE | 2016-11-09 08:35 | DRSVH ---
PROCEDURE: US VENOUS ARM DUPLEX UNILATERAL, LEFT INDICATIONS: left arm clot TECHNIQUE: Real-time imaging, as well as color and pulse Doppler interrogation, was performed of the left upper extremity deep veins from the inferior neck to the antecubital fossa. COMPARISON: None. FINDINGS: The internal jugular vein, visualized portions of the subclavian vein, axillary, and brach ial veins are free of intraluminal thrombus. Where physically possible, the veins are normally compr essible. Color and pulse Doppler demonstrate normal intraluminal flow, with expected phasicity and p ulsatility. Additional scanning of the cephalic and basilic veins of the superficial system demonstr ate normal compressibility, without thrombus. IMPRESSION: No evidence of left upper extremity DVT. Dictated by: Gino Donis M.D. on 11/09/2016 at 8:33 Approved by: Gino Donis M.D. on 11/09/2016 at 8:33
[2016-11-09] MEDS ORDERED: Heparin 25K Unit/500mL 0.45 NS 25,000 UNIT in IV Premix 1 EACH IV ONE (08:40)
[2016-11-09] MEDS ORDERED: Heparin 5,000 Unit/mL Inj IVPUSH ONE (08:40)
[2016-11-09] MEDS ORDERED: Polyethylene Glycol (PEG) 17 Gm Powder PO PRN (09:20)
[2016-11-09] MEDS ORDERED: Alum-Mag Hydrox-Simeth 30 mL Suspension PO PRN ×2 (09:20)
[2016-11-09] MEDS ORDERED: Ondansetron 2 mg/mL 2 mL Inj IVPUSH PRN ×2 (09:20)
[2016-11-09] MEDS ORDERED: SYMINH INHALATION (09:26)
[2016-11-09] MEDS ORDERED: OXYC-474 PO (09:26)
[2016-11-09 10:26] LABS: BASOPHILS % (AUTO) 0.6 % (0-3); EOSINOPHILS % (AUTO) 0.4 % (0-5); MONOCYTES % (AUTO) 7.3 % (4-12); Mean Corpuscular Hemoglobin 27.2 pg (27.0-35.0); Mean Corpuscular Volume 82.9 fL (81-100); NEUTROPHILS % (AUTO) 51.7 % (40-74); Platelet Count 185 bil/L (150-400)
[2016-11-09] MEDS ORDERED: Albuterol-Ipratropium 3 mL Inhalation Solution NEB PRN (10:45)
[2016-11-09] MEDS ORDERED: Albuterol 1.25 mg/3 mL Inhalation Solution NEB PRN (10:45)
--- NOTE | 2016-11-09 10:46 | NUR ---
Admit Pt arrived via stretcher to [facility] room [facility] via ED, report received from Josephine Soriano RN. Pt A/O x 4, was able to transfer self to bed, however became very SOB, requested RIAZ roque MD paged, received new orders for NEBs now. Will continue to monitor.
[2016-11-09] MEDS ORDERED: Heparin 5,000 Unit/mL Inj IVPUSH PRN (11:25)
[2016-11-09] MEDS: Albuterol-Ipratropium 3 mL Inhalation Solution NEB SCH ×3 (11:30→20:09)
[2016-11-09] MEDS: predniSONE 20 mg Tablet PO SCH (12:05)
[2016-11-09] MEDS ORDERED: LORazepam 1 mg Tablet PO ONE (12:20)
--- NOTE | 2016-11-09 12:21 | PCM.HPMED ---
Subjective Date of Service Nov 09, 2016 Primary Provider: Admitting Physician: Prince Sheth MD Primary Care Physician: Ulises Chou DO Attending Physician: Prince Sheth MD Chief Complaint: Difficulty breathing History of Present Illness: Kiet Quintana is a 61 year old woman with past medical history significant for severe emphysema and prior questionably unprovoked PE 18 months ago who presented to the [facility] ED due to difficulty breathing and right arm swelling. The patient was seen in the ED yesterday with complaint of left leg swelling and shortness of breath but was discharged back home with diagnosis of COPD exacerbation after a negative lower extremity U/S. The patient states that for the last few days she has been feeling like she "has a blood clot." She cannot elucidate the symptoms further but did note worsening shortness of breath and felt like she did with her prior PE. She noticed left ankle swelling and discoloration of that ankle as well patches of her skin discolored. Patient reports that she has noticed the swelling of her arm for several weeks but she states it was worse this morning and appeared red. Her last PE occurred 18 months ago at [facility] after her back surgery for spinal stenosis. At the time the PE was attributed to the surgery. The patient had an 8 day stay in the ICU for the PE and simultaneous HCAP. She took warfarin for 6 months and then stopped as she was instructed. No coagulopathy work up was completed per the patient. She also notes increased SOB, noting that she has had to use her rescue inhaler 3 times in the past 12 hours and she typically only uses it twice a day. Patient is on home O2. In the ED her vitals were T 36.8 HR 86 RR 16 BP 127/83 O2 Sat 99% on room air. CTA of chest showed a right sided pulmonary embolism. She was started on a heparin drip. Review of Systems: A comprehensive review of systems was conducted with the patient and found to be negative except as above in the History of Present Illness. Allergies Coded Allergies: Sulfa (Sulfonamide Antibiotics) (Verified Allergy, Severe, 11/07/16) doxycycline (Verified Allergy, Unknown, 11/07/16) Home Medications Scheduled Bupropion-SR 150 MG Tablet (Zyban-SR 150 MG Tablet) 150 Mg Tabsr 1 TAB PO BID DO NOT CRUSH TAB..TAKE WITH FOOD Citalopram (Citalopram) 20 Mg Tablet 20 MG PO DAILY Omeprazole (Omeprazole) 20 Mg Capsule.dr 20 MG PO BID Prednisone (PredniSONE) 20 Mg Tablet 40 MG PO DAILY Trazodone (Trazodone) 50 Mg Tablet 50 MG PO HS Scheduled PRN Albuterol Neb Soln (Albuterol Neb Soln) 2.5 Mg/3 Ml Vial.neb 2.5 MG INHALATION Q4H PRN PRN For Shortness of Breath Docusate Sodium (Docusate Sodium) 250 Mg Capsule 100 MG PO DAILY PRN PRN For Constipation Miscellaneous Medications Albuterol Sulfate (Proair Respiclick) 90 Mcg Aer.pow.ba 90 MCG IH Bupropion HCl (Zyban) 150 Mg Tablet.er 150 MG PO Polyethylene Glycol 3350 (Miralax) 17 Gm Powd.pack 17 GM PO Tiotropium [place] (Spiriva Respimat) 1.25 Mcg/Actuation Mist.inhal 4 GM IH PMH 1. COPD. 2. Spinal stenosis. 3. Fibromyalgia. 4. History of endometriosis, status post hysterectomy and bilateral oophorectomy. 5. GERD. 6. Questionable history of peptic ulcer disease. 7. History of retinal hemorrhage status post multiple eye surgeries. 8. Degenerative joint disease. 9. Hx of pulmonary embolism Surgical History Rotator Cuff surgery Cholecystectomy with subsequent gallstone removal Hysterectomy and bilateral oophorectomy Multiple eye surgeries Vaginal prolapse status post surgical repair in 1984. Status post cataract removal in 2011 bilaterally. Status post colonoscopy in 2009 with polypectomy. Lumbar surgery in 2006 Cervical surgery about 18 months ago. Family History No family history of coagulopathy. Social History Hx Alcohol Use: Yes (Very rare) Hx Substance Use: No Hx Tobacco Use: Yes (vapor cigs) Smoking Status: Former Smoker (quit 1 year ago) Exam Vital Signs Vital Sign - Last Date Time Temp Pulse Resp B/P Pulse Ox O2 Delivery O2 Flow Rate FiO2 11/09/16 10:59 70 22 97 2.00 11/09/16 10:54 36.8 148/83 Nasal Cannula Exam General: No acute distress, well-developed, well-nourished, appropriately interactive HEENT: Normocephalic, atraumatic. External ears without defect. Pupils equal, round, and reactive to light and accommodation. Anicteric sclerae, moist conjunctivae, and no lid lag. Oropharynx free of erythema and cobble stoning with moist mucosa. Neck: Supple with full range of motion. No jugular venous distension. No bruits. No lymphadenopathy or thyromegaly. Cardiovascular: Regular rate and rhythm with no murmurs, rubs, or gallops appreciated Pulmonary: Poor air movement. Increase AP diameter. Normal respiratory effort with no use of accessory muscles. Abdomen: Bowel tones present. Soft, nondistended. Mild tenderness to palpation over LLQ. No hepatosplenomegaly or masses appreciated. Extremities: No clubbing, cyanosis, or lymphadenopathy appreciated. Mild edema of L ankle. No calf tenderness. Mildly erythematous L arm in the antecubital area. Skin: Normal temperature, turgor, and texture; no rash, ulcers, or subcutaneous nodules appreciated. Neurological: Cranial nerves grossly intact. Normal muscle strength, tone, and bulk. Reflexes, coordination, and sensory function within normal limits. No known gait impairment. Psychiatric: Normal mood and affect. Alert and oriented to person, place, and time. Lab and Diagnostics Result Diagram: 11/09/16 1012 X-Rays, CTs and MRIs PROCEDURE: CT ANGIO CHEST PULMONARY EMBOLISM IMPRESSION: 1. Right sided pulmonary emboli as described above. 2. Severe emphysema. 3. Findings discussed with Dr. Brandon on 11.09.16 at 0830 hrs. Dictated by: Gino Donis M.D. on 11/09/2016 at 8:29 US VENOUS ARM DUPLEX UNILATERAL, LEFT IMPRESSION: No evidence of left upper extremity DVT. Dictated by: Gino Donis M.D. on 11/09/2016 at 8:33 12-lead ECG NSR, no ST changes, normal axis Assessment & Plan Kiet Quintana is a 61 year old woman with past medical history significant for severe emphysema and prior questionably unprovoked PE 18 months ago who presented to the [facility] ED due to difficulty breathing and right arm swelling. Now under treatment for PE. Right sided pulmonary embolism -Based on the patient's history this appears as an unprovoked PE -Patient was not previously worked up for hypercoagulability -Patient already started on heparin so only some of the hypercoagulability work up can be initiated but she will need to follow up about this with hematology -Continue anticoagulation with heparin -ECHO to rule out heart strain, although this seems unlikely given the size of the PE -Patient is hemodynamically stable so no real indication for EKOS -Telemetry COPD, not in exacerbation -Patient was started on Prednisone 40 MG PO DAILY in the ED yesterday for 5 days and has already taken one day worth of medication so will continue for 4 more days -Hold home inhalers, DuoNeb QID while awake with albuterol PRN Q2 -Keep O2 saturation between 88 - 92% GERD -Continue home Omeprazole Degenerative joint disease -Continue home oxycodone Depression -Continue home medications: Bupropion-SR 150 MG, Citalopram 20 Mg PO DAILY, Trazodone 50 MG PO HS Spinal stenosis Fibromyalgia CODE STATUS: DNR, patient would like to be intubated if necessary. Patient is admitted under inpatient status with expected length of stay greater than 2 midnights due to severity of presenting symptoms, risk of adverse event, and complexity of treatment plan. Attending Statement The patient was seen and examined together with Dr. Lowery on 11/09/2016 and I agree with the history, exam and plan as outlined in the note above. Lennie Lowery DO Nov 09, 2016 11:39 Prince Sheth MD Nov 09, 2016 13:21
[2016-11-09 13:04] LABS: TROPONIN T 0.01 ug/L (0.0-0.011)
--- NOTE | 2016-11-09 14:14 | NUR ---
Social Work-initial assessment: Data:See initial assessment. Pt is a 61 y/o female who was admitted on 11/09/16 for pulmonary embolism per H&P. Pt's insurance is [facility] and PCP is Nellie Chou DO.EMR reviewed. Pt's readmission score is 3-high risk. SW met with pt at bedside to discuss discharge planning, SW role explained. Pt is alert and oriented x3. Pt resides at home with her daughter, son in law, and grandchildren where she remains independent with ADLs. Pt does not drive and uses a fww at baseline. Pt has home O2 through [employer]. Pt has no HH or SNF history. Pt has no long term care administrator care or VA benefits. SW discussed DPOA/ advanced directive, pt confirms she has completed this, SW encouraged a copy to be brought in. Pt states she feels like she has enough help at home. Per RN notes, pt has been up independent in her room. Pt's daughter to provide transport home. SW provided phone number and plan on white board in room. No anticipated discharge needs. SW will continue to follow if needs arise. Assessment:Pt who is independent at baseline. Plan:Pt to discharge home when medically stable via POV.No anticipated discharge needs. SW will continue to follow if needs arise. SAMI Rivera Addendum: 11/09/16 at 1418 by JAYSON LUCIANO SS Amended: Links added.
--- NOTE | 2016-11-09 18:42 | NUR ---
Heparin Drip Pt heparin drip stopped at 1644 r/t aPTT 172.5. Pt redraw at 1700, received results at 1800 131.9. Pt restarted on drip and unit decreased by 4 units. Next draw in 6hrs per protocol. Guaiac sample sent at 1830. No s/s of bleeding. Will continue to monitor.
[2016-11-09] MEDS: buPROPion SR 150 mg ER12 Tablet PO SCH (20:30)
[2016-11-09] MEDS: Polyethylene Glycol (PEG) 17 Gm Powder PO SCH (20:32)
--- NOTE | 2016-11-09 21:40 | DRSVH ---
[facility] [address] [place] [address] Echocardiogram Report Name: OBED RIGGS Study Date: 11/09/2016 Height: 66 in Hospital Exam Location: [facility] Weight: 190 lb Gender: Female BSA: 2.0 m2 : 1955 Age: 61 yrs BP: 148/83 mmHg Reason For Study: Pulmonary- Embolism Ordering Physician: Performed By: [facility] Interpretation Summary Normal sinus rhythm. Normal LV size, wall thickness, wall motion and LV systolic function. EF is 55-60%. No evidence of diastolic dysfunction. There is mildly dilated RV with borderline reduced RV function. No significant valvular abnormalities. Can not estimate PA systolic pressure due to lack of significant TR jet. Compared to prior study 06/14/2013 RV dilation is new. Procedure: A two-dimensional transthoracic echocardiogram with color flow and Doppler was performed. The study quality was technically adequate. Comparison is made with the echocardiogram of 06-14-13. The patient was in normal sinus rhythm during the exam. Left Ventricle: The left ventricle is normal in size. There is normal left ventricular wall thickness. The ejection fraction is estimated to be 55-60%. Assessment of diastolic parameters indicates normal left ventricular diastolic function and normal filling pressures. Right Ventricle: The right ventricle is mildly dilated. Right ventricular systolic function is borderline reduced. Atria: The left atrial size is normal. Right atrial size is normal. Mitral Valve: The mitral valve leaflets appear mildly thickened, but open well. There is no mitral regurgitation noted. Aortic Valve: The aortic valve opens well. No aortic regurgitation is present. Tricuspid Valve: The tricuspid valve is normal in structure and function. No tricuspid regurgitation. Pulmonic Valve: The pulmonic valve is not well seen, but is grossly normal. There is no pulmonic valvular regurgitation. Great Vessels: The aortic root is normal size. The IVC is dilated (diameter is greater than 2.1 cm) yet it collapses greater than 50% with a sniff. This suggests a right atrial pressure of 8 mm Hg. Pericardium/ Pleura There is no pericardial effusion. There is no pleural effusion. MMode/2D Measurements & Calculations LVIDd: 5.1 cm LA dimension: 3.8 cm RVDd major Ao root diam LVIDs: 3.8 cm IVC diam: 2.1 cm : 5.9 cm FS: 25.6 % Aortic Jxn IVSd: 0.96 cm : 2.8 cm LVPWd: 0.79 cm LV miller. diameter/BSA LV sys. diameter/BSA RVD1 (basal) RVD2 (mid) (cm/m^2): 2.6 (cm/m^2): 2.0 : 3.4 cm Doppler Measurements & Calculations Ao V2 max MV E max jac MV E/A: 1.1 PA V2 max : 173.1 cm/sec : 111.7 cm/sec Med Peak E' Jac : 90.6 cm/sec Ao max PG MV A max jac PA mean PG : 12.0 mmHg : 97.7 cm/sec E/E' med: 9.7 Ao mean PG MV P1/2t: 68.1 msec Lat Peak E' Jac PA Accel Time : 5.9 mmHg : 0.18 sec E/E' lat: 8.6 E/e' average: 9.2 MV A dur: 0.12 sec MV dec time MV P1/2t max jac Ao V2 mean PA V2 mean : 0.22 sec : 111.9 cm/sec : 64.5 cm/sec Ao V2 VTI: 37.2 cm MVA(P1/2t): 3.2 cm2 Reading Physician:09:40 PM
[2016-11-10] VITALS (11 sets, daily range): BP systolic 106–130; BP diastolic 59–78; PULSE 61–111; RESP 16–22; O2SAT 93–100
[2016-11-10] MEDS: Heparin 25K Unit/500mL 0.45 NS 25,000 UNIT in IV Premix 1 EACH IV SCH (04:36)
--- NOTE | 2016-11-10 05:57 | NUR ---
Pain, Heparin gtt: Pt reported pain to upper back tonight, chest occasionally which increases with deep breathing. Oxycodone administered for pain every 4 hours, pt states this is "not working" well for pain control, pt did receive Tylenol also a couple times through the night to see if that would improve pain control. Was able to sleep for only a few hours tonight.\\ PTT was within goal tonight, no changes to Heparin drip rate. PTT morning draw just completed, awaiting results.
--- NOTE | 2016-11-10 06:02 | NUR ---
V tach: Pt had 7 beats of V tach this morning, assymptomatic with this. Pt was sitting up in bed drinking coffee. MD notified and labs ordered for this morning.
[2016-11-10 06:27] LABS: BASOPHILS % (AUTO) 0.4 % (0-3); EOSINOPHILS % (AUTO) 0.6 % (0-5); MONOCYTES % (AUTO) 6.5 % (4-12); Mean Corpuscular Volume 83.9 fL (81-100); NEUTROPHILS % (AUTO) 58.7 % (40-74); Platelet Count 204 bil/L (150-400)
[2016-11-10] MEDS: Albuterol-Ipratropium 3 mL Inhalation Solution NEB SCH ×4 (07:25→19:30)
[2016-11-10] MEDS: Pantoprazole 40 mg ER24 Tablet PO SCH ×2 (08:07→20:47)
[2016-11-10] MEDS: Polyethylene Glycol (PEG) 17 Gm Powder PO SCH ×2 (08:07→20:48)
[2016-11-10] MEDS: predniSONE 20 mg Tablet PO SCH (08:07)
[2016-11-10] MEDS: buPROPion SR 150 mg ER12 Tablet PO SCH (08:08)
[2016-11-10] MEDS ORDERED: DABI150C PO (11:31)
--- NOTE | 2016-11-10 11:50 | NUR ---
OFF unit-MRI Pt taken by tech via on oxygen for brain MRI. Pt deferred pain meds until return, stated pain to be 5/10.
--- NOTE | 2016-11-10 13:39 | DRSVH ---
PROCEDURE: MRA ANGIOGRAM HEAD WITHOUT CONTRAST ([id number]) INDICATIONS: visual disturbance TECHNIQUE: Noncontrast axial 3-D [id number] MR angiogram, with 3-dimensional maximum intensity projection (M IP) reformats of the internal carotid arteries and posterior circulation then performed. COMPARISON: None. FINDINGS: Image quality: Excellent. Anterior circulation: Intracranial internal carotid arteries demonstrate normal size and intralumina l flow signal. The flow within the paired anterior cerebral arteries is normal and symmetric. The f low within the middle cerebral arteries is normal and symmetric. The anterior communicating artery i s seen. No stenoses, occlusions, or aneurysms. Posterior circulation: Visualized portions of the vertebral arteries demonstrate normal caliber, and join to form a normal appearing basilar artery. The flow within the posterior cerebral arteries is normal and symmetric. No stenoses, occlusions, or aneurysms. IMPRESSION: Negative examination. Dictated by: Belinda Hernandez MD, PhD on 11/10/2016 at 13:35 Approved by: Belinda Hernandez MD, PhD on 11/10/2016 at 13:38
--- NOTE | 2016-11-10 14:15 | NUR ---
Social Work-continued d/c planning: Data:EMR Reviewed. Pt is on day 1 of hospitalization for PE per H&P. Pt is not medically stable for discharge. would like [facility] to check RX for Pradaxa. SW followed up with pt and daughter at bedside. Pt states she uses [facility]. Pt also requesting [facility] application. [facility] provided pt with a copy. [facility] faxed over RX to [facility], awaiting a return call for copay amount. [facility] will continue to follow. Assessment:Pt who is independent at baseline. Plan:Pt to discharge home when medically stable via POV. [facility] has faxed over RX for [facility]. [facility] will continue to follow. SAMI Rivera Addendum: 11/10/16 at 1621 by JAYSON LUCIANO SS SW received a call back from Pharmacy stating pt's copay for 10 tablets would be $123.00. Unclear if pt has deductible that needs to be met. SW to follow up with pt tomorrow. SAMI Rivera
--- NOTE | 2016-11-10 17:33 | NUR ---
Oxygen Post ambulating to the restroom, pt sating at 91% on RA. Pt educated re keeping O2 between 88-92%, while on 1L of oxygen at rest, pt sating in upper 90s. Pt will ask to have O2 applied if/when napping. Will continue to monitor.
--- NOTE | 2016-11-10 18:00 | PCM.PNMED ---
Subjective Date of Service Nov 10, 2016 Subjective Overnight patient reported pain in her upper back and chest which increases with deep breathing oxycodone and Tylenol administered without adequate relief. This morning patient had 7 beats of V. tach while sitting up drinking coffee in bed. She still endorses some mild shortness of breath and feels like her Symbicort that she takes at home really helps. I explained that similar medication is in her nebulizer treatment. She complains of a headache which is common for her. She also has neck pain related to cervical stenosis which is chronic. She feels like over the last 30 days she has had some memory loss problems. Her lung condition has also been acutely worsening over the last 30 days. She describes visual disturbances as a units or flies that move through her vision quickly. She is followed by Dr. Gerardo of pulmonology., In [address] scan that showed a lung nodule however this nodule was not present on most recent CT scan Exam Vital Signs Vital Sign - Last Date Time Temp Pulse Resp B/P Pulse Ox O2 Delivery O2 Flow Rate FiO2 11/10/16 05:30 36.6 61 18 130/78 100 Nasal Cannula 2.00 Intake and Output 11/09/16 11/09/16 11/10/16 Cumulative From/Thru 15:00 23:00 07:00 11/09/16 04:19 - 11/10/16 06:16 Intake Total 1221 ml 1461 ml 2682 ml Output Total 650 ml 725 ml 1375 ml Balance 571 ml 736 ml 1307 ml Intake Oral 1020 ml 1200 ml 2220 ml IV Total 191 ml 261 ml 452 ml Tube Irrigant 10 ml 10 ml Output Urine Total 650 ml 725 ml 1375 ml # Voids 1 3 4 # Bowel Movements 2 2 Exam General: No acute distress, well-developed, well-nourished, appropriately interactive HEENT: Normocephalic, atraumatic. External ears without defect. Pupils equal, round, and reactive to light and accommodation. Anicteric sclerae, moist conjunctivae, and no lid lag. Oropharynx free of erythema and cobble stoning with moist mucosa. Trilogy nasal cannula in place Neck: Supple with full range of motion. No jugular venous distension. No lymphadenopathy or thyromegaly. Cardiovascular: Regular rate and rhythm with no murmurs, rubs, or gallops appreciated Pulmonary: Poor air movement, Clear to auscultation bilaterally with no crackles , wheezes, or rhonchi. Normal respiratory effort with no use of accessory muscles. Abdomen: Bowel tones present. Fullness of the left lateral abdomen, soft, nontender, nondistended. No hepatosplenomegaly or masses appreciated. Extremities: No clubbing, cyanosis, edema, or lymphadenopathy appreciated. Skin: Normal temperature, turgor, and texture; no rash, ulcers, or subcutaneous nodules appreciated. Neurological: Cranial nerves grossly intact. Normal muscle strength, tone, and bulk. No known gait impairment. Psychiatric: Normal mood and affect. Alert and oriented to person, place, and time. IVs and Medications Medications Reviewed: Medications were reviewed in detail Lab and Diagnostics Result Diagram: 11/10/16 0600 11/10/16 0600 X-Rays, CTs and MRIs PROCEDURE: CT ANGIO CHEST PULMONARY EMBOLISM IMPRESSION: 1. Right sided pulmonary emboli as described above. 2. Severe emphysema. 3. Findings discussed with Dr. Brandon on 11.09.16 at 0830 hrs. Dictated by: Gino Donis M.D. on 11/09/2016 at 8:29 VENOUS ARM DUPLEX UNILATERAL, LEFT IMPRESSION: No evidence of left upper extremity DVT. Dictated by: Gino Donis M.D. on 11/09/2016 at 8:33 12-lead ECG NSR, no ST changes, normal axis Cardiac Echo Impressions Echocardiogram Report Interpretation Summary Normal sinus rhythm. Normal LV size, wall thickness, wall motion and LV systolic function. EF is 55-60%. No evidence of diastolic dysfunction. There is mildly dilated RV with borderline reduced RV function. No significant valvular abnormalities. Can not estimate PA systolic pressure due to lack of significant TR jet. Compared to prior study 06/14/2013 RV dilation is new. Additional Diagnostics Prior Colonoscopy FINDINGS: 1. Scattered diverticula were seen throughout the left colon. 2. Small internal hemorrhoids were noted on retroflexion. IMPRESSION: 1. Left-sided diverticulosis. 2. Small internal hemorrhoids. RECOMMENDATIONS: 1. Fiber-rich diet. 2. Follow up in GI clinic as needed. 3. Repeat colonoscopy in five years. Hien Mcdermott MD 09/25/16 1512 Assessment & Plan Kiet Quintana is a 61 year old woman with past medical history significant for severe emphysema and prior questionably unprovoked PE 18 months ago who presented to the [facility] ED due to difficulty breathing and right arm swelling. Now under treatment for PE. # Right sided pulmonary embolism -Based on the patient's history this appears an unprovoked PE -Patient was not previously worked up for hypercoagulability -Patient already started on heparin so only some of the hypercoagulability work up can be initiated but she will need to follow up about this with hematology -on anticoagulation with heparin,will switch to lovenox -ECHO as above -Patient is hemodynamically stable so no real indication for EKOS -Telemetry -Cancer screening appropriate for age includes outpatient follow-up of prior abnormal mammogram. Last colonoscopy was 09/25/2016 results above. Lung nodule identified on prior CT exam does not appear to be noted on most recent CT exam.may need HRCT outpt -Lovenox teaching as patient may be able to discharge with bridging therapy. -Consider use of NOACs in place of warfarin for anticoagulation. Prescription provided to social work for prior authorization. # COPD, not in exacerbation -Patient was started on Prednisone 40 MG PO DAILY in the ED 2 days prior to admission, was discontinued at this time -Hold home inhalers, DuoNeb QID while awake with albuterol PRN Q2 -Keep O2 saturation between 88 - 92% # GERD -Continue home Omeprazole # Degenerative joint disease -Continue home oxycodone -K-pad ordered for heat therapy # Depression -Continue home medications: Bupropion-SR 150 MG, Citalopram 20 Mg PO DAILY, Trazodone 50 MG PO HS # Spinal stenosis # Fibromyalgia CODE STATUS: DNR, patient would like to be intubated if necessary. Patient is admitted under inpatient status with expected length of stay greater than 2 midnights due to severity of presenting symptoms, risk of adverse event, and complexity of treatment plan. Pain Evaluation: Adequate Pain Control GI Prophylaxis: Proton Pump Inhibitor VTE Prophylaxis: Other (heparin drip) Resuscitation Status: Limited Interventions Limited Interventions: [facility], Medications and IV Fluid Attending Statement The patient was seen and examined together with Dr. Worrell on 11/10/2016 and I agree with the history, exam and plan as outlined in the note above. Natacha Worrell DO Nov 10, 2016 08:05 Jonatan Parikh MD Nov 10, 2016 20:52
[2016-11-11] VITALS (12 sets, daily range): BP systolic 103–156; BP diastolic 67–99; PULSE 65–87; RESP 16–20; O2SAT 94–99
--- NOTE | 2016-11-11 05:15 | NUR ---
Pain/NOC Note: Pt continues to c/o back pain and chest pain that worsens with deep breathing; medication administered; effective. Pt also using Kpad for pain. Pt slept most of the night, pleasant and cooperative with care.
[2016-11-11] MEDS: Heparin 25K Unit/500mL 0.45 NS 25,000 UNIT in IV Premix 1 EACH IV SCH (05:33)
[2016-11-11 07:25] LABS: BASOPHILS % (AUTO) 0.3 % (0-3); EOSINOPHILS % (AUTO) 0.7 % (0-5); MONOCYTES % (AUTO) 6.9 % (4-12); Mean Corpuscular Volume 83.1 fL (81-100); NEUTROPHILS % (AUTO) 51.7 % (40-74); Platelet Count 210 bil/L (150-400)
[2016-11-11] MEDS: Albuterol-Ipratropium 3 mL Inhalation Solution NEB SCH ×4 (07:52→21:33)
[2016-11-11] MEDS: Pantoprazole 40 mg ER24 Tablet PO SCH ×2 (08:07→20:25)
[2016-11-11] MEDS: Polyethylene Glycol (PEG) 17 Gm Powder PO SCH ×2 (08:08→20:25)
[2016-11-11] MEDS ORDERED: predniSONE 20 mg Tablet PO SCH (08:30)
[2016-11-11 11:08] LABS: Perinuclear (P-ANCA) <1:20 titer (Neg:<1:20)
--- NOTE | 2016-11-11 13:13 | NUR ---
Social Work-readiness for discharge: Data:EMR reviewed. Pt is on day 2 of hospitalization for PE per H&P. Pt is not medically stable for discharge anticipate another 1-2 days. Pt resides at home with family and will return home at discharge, no needs. SW updated MD on cost of medication. MD will discuss with pt and likely have pt return home on Warfarin. Pt has been up independent in her room. Pt's daughter to provide transport home. No anticipated discharge needs. SW will continue to follow if needs arise. Assessment:Pt who is independent at baseline. Plan:Pt to discharge home when medically stable via POV. No anticipated discharge needs. SW will continue to follow if needs arise. SAMI Rivera
[2016-11-11 15:07] LABS: INR 1.01 ratio
--- NOTE | 2016-11-11 15:30 | PCM.CONPHA ---
Subjective Difficulty breathing Reason for Pharmacy Consult: Anticoagulation Management Assessment/Plan Assessment/Plan Warfarin Management by Pharmacy Indication: PE Home Dose: New start INR Goal: 2-3 Duration: Unknown Wt: 86.3 kg Anticoagulation Trends Lab Date Result Dose INR 11/11/16 1.01 Therapeutic bridge therapy: Heparin gtt; transitioning to Lovenox 80 mg BID Assessment/Plan - New start for warfarin in PE treatment. Bridge therapy as above. -Will initiate warfarin 5 mg today then continue with daily regimen/monitoring. -Pharmacy to monitor INR/CBC/signs of bleeding while inpatient. Thanks, Henok Swartz Pharm.D. Henok Swartz Nov 11, 2016 15:29
--- NOTE | 2016-11-11 17:51 | NUR ---
Pain/Heparin gtt Pt reports 4-8/10 upper back pain; states 10mg PO oxycodone Q4H is not enough relief. Dr. Parikh ordered increased dose to 15mg. 5mg in addition to previous 10mg administered initially, pt reports some relief. Pt has not yet received full 15mg dose at once to assess efficacy. Pt pleasantly conversing and laughing with family members, while eating dinner at this time. 5mg PO warfarin administered. Heparin gtt to be d/c'd at 1929, and lovenox inj ordered at 2029.
--- NOTE | 2016-11-11 17:54 | PCM.PNMED ---
Subjective Date of Service Nov 11, 2016 Subjective Overnight patient continued to have pain in her back and chest worse with inspiration. This morning patient continues to have chest and back pain. Pain with inspiration has decreased. She is still not had a bowel movement which is not unusual for her however she feels at this point the best course of action would be to have an enema. She continues to have mild shortness of breath however is off oxygen at this time with O2 sats around 95. Exam Vital Signs Vital Sign - Last Date Time Temp Pulse Resp B/P Pulse Ox O2 Delivery O2 Flow Rate FiO2 11/11/16 05:24 37.1 77 16 128/80 95 Room Air 11/10/16 11:37 1.00 Intake and Output 11/10/16 11/10/16 11/11/16 Cumulative From/Thru 15:00 23:00 07:00 11/09/16 04:19 - 11/10/16 18:36 Intake Total 1736 ml 4418 ml Output Total 1300 ml 2675 ml Balance 436 ml 1743 ml Intake Oral 1736 ml 3956 ml IV Total 452 ml Tube Irrigant 10 ml Output Urine Total 1300 ml 2675 ml # Voids 4 # Bowel Movements 0 2 Exam General: No acute distress, well-developed, well-nourished, appropriately interactive HEENT: Normocephalic, atraumatic. External ears without defect. Pupils equal, round, and reactive to light and accommodation. Anicteric sclerae, moist conjunctivae, and no lid lag. Oropharynx free of erythema and cobble stoning with moist mucosa. Trilogy nasal cannula in place Neck: Supple with full range of motion. No jugular venous distension. No lymphadenopathy or thyromegaly. Cardiovascular: Regular rate and rhythm with no murmurs, rubs, or gallops appreciated Pulmonary: Poor air movement, Clear to auscultation bilaterally with no crackles , wheezes, or rhonchi. Normal respiratory effort with no use of accessory muscles. Abdomen: Bowel tones present. Fullness of the left lateral abdomen; more prominent than yesterday, soft, nontender, nondistended. No hepatosplenomegaly or masses appreciated. Extremities: No clubbing, cyanosis, edema, or lymphadenopathy appreciated. Skin: Normal temperature, turgor, and texture; no rash, ulcers, or subcutaneous nodules appreciated. Neurological: Cranial nerves grossly intact. Normal muscle strength, tone, and bulk. No known gait impairment. Psychiatric: Normal mood and affect. Alert and oriented to person, place, and time. Lab and Diagnostics Result Diagram: 11/10/16 0600 11/10/16 0600 X-Rays, CTs and MRIs PROCEDURE: CT ANGIO CHEST PULMONARY EMBOLISM IMPRESSION: 1. Right sided pulmonary emboli as described above. 2. Severe emphysema. 3. Findings discussed with Dr. Brandon on 11.09.16 at 0830 hrs. Dictated by: Gino Donis M.D. on 11/09/2016 at 8:29 US VENOUS ARM DUPLEX UNILATERAL, LEFT IMPRESSION: No evidence of left upper extremity DVT. Dictated by: Gino Donis M.D. on 11/09/2016 at 8:33 12-lead ECG NSR, no ST changes, normal axis Cardiac Echo Impressions Echocardiogram Report Interpretation Summary Normal sinus rhythm. Normal LV size, wall thickness, wall motion and LV systolic function. EF is 55-60%. No evidence of diastolic dysfunction. There is mildly dilated RV with borderline reduced RV function. No significant valvular abnormalities. Can not estimate PA systolic pressure due to lack of significant TR jet. Compared to prior study 06/14/2013 RV dilation is new. Additional Diagnostics Prior Colonoscopy FINDINGS: 1. Scattered diverticula were seen throughout the left colon. 2. Small internal hemorrhoids were noted on retroflexion. IMPRESSION: 1. Left-sided diverticulosis. 2. Small internal hemorrhoids. RECOMMENDATIONS: 1. Fiber-rich diet. 2. Follow up in GI clinic as needed. 3. Repeat colonoscopy in five years. Hien Mcdermott MD 09/25/16 1512 Assessment & Plan Kiet Quintana is a 61 year old woman with past medical history significant for severe emphysema and prior questionably unprovoked PE 18 months ago who presented to the [facility] ED due to difficulty breathing and right arm swelling. Now under treatment for PE. 1. Right sided pulmonary embolism, present on admission -Based on the patient's history this appears an unprovoked PE -Patient was not previously worked up for hypercoagulability -Patient already started on heparin so only some of the hypercoagulability work up can be initiated but she will need to follow up about this with hematology -on anticoagulation with lovenox, warfarin initiated today. -ECHO as above -Patient is hemodynamically stable so no real indication for EKOS -Telemetry -Cancer screening appropriate for age includes outpatient follow-up of prior abnormal mammogram. Last colonoscopy was 09/25/2016 results above. Lung nodule identified on prior CT exam does not appear to be noted on most recent CT exam, May need HRCT outpt -Lovenox teaching as patient may be able to discharge with bridging therapy. -Considered use of NOACs in place of warfarin for anticoagulation. Prescription provided to social work for prior authorization. Expense is too great therefore patient starting on warfarin 2. COPD, not in exacerbation -Patient was started on Prednisone 40 MG PO DAILY in the ED 2 days prior to admission, was discontinued at this time -Hold home inhalers, DuoNeb QID while awake with albuterol PRN Q2 -Keep O2 saturation between 88 - 92% -continue home Triology 3. GERD -Continue home Omeprazole 4. Degenerative joint disease -Continue home oxycodone increased to 15 mg every 4 hours when necessary -K-pad ordered for heat therapy 5. Constipation, acute on chronic - Home MiraLAX daily - Colace given today - Mineral oil enema to be given tonight with follow-up saline enemas in the morning if patient has not had bowel movement 6. Depression -Continue home medications: Bupropion-SR 150 MG, Citalopram 20 Mg PO DAILY, Trazodone 50 MG PO HS 7. Spinal stenosis 8. Fibromyalgia CODE STATUS: DNR, patient would like to be intubated if necessary. Patient is admitted under inpatient status with expected length of stay greater than 2 midnights due to severity of presenting symptoms, risk of adverse event, and complexity of treatment plan. Patient likely to discharge in 2 days based on clinical course and anticoagulation. GI Prophylaxis: Proton Pump Inhibitor VTE Prophylaxis: Other (heparin drip) VTE Mechanical Devices: Intermittant Pneumatic CD, Venous Foot Pump Resuscitation Status: Limited Interventions Limited Interventions: Intubation w Mech Vent, BiPAP, Medications and IV Fluid Attending Statement The patient was seen and examined together with Dr. Worrell on 11/11/2016 and I agree with the history, exam and plan as outlined in the note above. Natacha Worrell DO Nov 11, 2016 06:03 Jonatan Parikh MD Nov 11, 2016 19:10
[2016-11-12] VITALS (10 sets, daily range): BP systolic 97–114; BP diastolic 60–72; PULSE 69–92; RESP 18–22; O2SAT 91–96
--- NOTE | 2016-11-12 06:05 | NUR ---
Suppository Pt requested suppository and not an enema. Md notified and ordered suppository. Pt self administered with good results. Pt had medium soft stool shortly after administration.
[2016-11-12] MEDS: Albuterol-Ipratropium 3 mL Inhalation Solution NEB SCH ×4 (07:25→21:13)
[2016-11-12] MEDS: Pantoprazole 40 mg ER24 Tablet PO SCH ×2 (08:26→19:45)
[2016-11-12] MEDS: Polyethylene Glycol (PEG) 17 Gm Powder PO SCH ×2 (08:29→17:09)
[2016-11-12 08:35] LABS: BASOPHILS % (AUTO) 0.7 % (0-3); EOSINOPHILS % (AUTO) 3.5 % (0-5); MONOCYTES % (AUTO) 7.9 % (4-12); Mean Corpuscular Hemoglobin 26.8 pg (27.0-35.0); Mean Corpuscular Volume 84.6 fL (81-100); NEUTROPHILS % (AUTO) 40.9 % (40-74); Platelet Count 217 bil/L (150-400)
--- NOTE | 2016-11-12 10:12 | NUR ---
Lovenox education this RN educated pt and pt's daughter on proper Lovenox injection. Explained procedure, reviewed step by step process, ran through a demo using a pad and saline injections with daughter doing a teach back. pt and daughter are comfortable with the process and have no questions at this time
[2016-11-12] MEDS ORDERED: LOV80 SUBQ (10:43)
--- NOTE | 2016-11-12 13:19 | CONS ---
[address] [address] CONSULTATION REPORT PATIENT: OBED RIGGS : 1955 MR#: [id number] ADMIT: 11/09/2016 JOB ID: [id number] DATE OF SERVICE: 11/12/2016 PULMONARY CONSULTATION NOTE: The patient is a 61-year-old woman known to me from outpatient pulmonary clinic with severe COPD, admitted to the hospital with current pulmonary embolism, seen in consultation at the request of Dr. Sheth for COPD. HISTORY OF PRESENT ILLNESS: The patient is a 61-year-old woman with severe COPD and prior hospitalization for COPD, as well as for pulmonary emboli that occurred postoperatively. She presented to the hospital with worsening shortness of breath, and chest CT showed right-sided pulmonary emboli. She was started on anticoagulation and also treated with low to medium dose oral prednisone for COPD. Symptom bonilla, she says her shortness of breath is better, and she has not been wearing her oxygen the last couple of days because her sats have been in the 90s for the most part. Recall that she has severe COPD at baseline, and her home regimen includes Symbicort, DuoNeb, p.r.n. albuterol. We added Trilogy after her last visit because of chronic compensated hypercarbic respiratory failure on her blood gas. Symptom bonilla, she had some cough and sputum. She had some back pain and some chest pain. Denies fevers, chills. Lower extremity edema has improved significantly. PAST MEDICAL HISTORY: 1. Severe COPD, FEV1 of 33%. 2. Severe emphysema. 3. GERD. 4. History of pulmonary emboli postoperatively in the past and now recurrent pulmonary embolism. 5. Chronic neck and back pain with spinal stenosis. SOCIAL HISTORY: Thirty years of smoking one pack a day until October 2015 when she stopped smoking. She has a history of desk job. REVIEW OF SYSTEMS: As above in HPI, remaining review of systems is negative. PHYSICAL EXAMINATION: Vital signs reviewed. Temperature 37.2, pulse 80, respirations 22, BP 107/68, sats 91% on room air. General: Sitting in bed, breathing comfortably. Speaking full sentences. HEENT: No scleral icterus. Oral mucosa is moist. Chest is clear to auscultation. No wheezes or crackles. Heart: Regular rate, rhythm. Abdomen: Soft, nontender. Extremities: No cyanosis, clubbing, or edema. Skin: No rashes. LABORATORY DATA: CBC and chemistry are within normal limits. CT of the chest was reviewed and shows severe bilateral upper lobe predominant emphysema. She also has right upper lobe lobar and segmental pulmonary emboli. ASSESSMENT AND RECOMMENDATIONS: 1. Acute pulmonary embolism in the right upper lobar and segmental vessels - recurrent. 2. Severe chronic obstructive pulmonary disease. 3. Chronic hypoxic hypercarbic respiratory failure. A 61-year-old woman with known severe chronic obstructive pulmonary disease with most recent pulmonary function tests showing FEV1 of 33% with DLCO 33% is admitted with recurrent pulmonary embolism. Her hypercoagulable workup is pending, but regardless of what this workup shows, the patient meets criteria for lifelong anticoagulation because of recurrent and now unprovoked pulmonary embolism, even though her first one occurred postoperatively. Defer to primary team regarding choice of anticoagulant, etc. Most likely, all of her recurrent chronic obstructive pulmonary disease exacerbations could have been symptoms from her pulmonary embolus, but there is no way to be certain. Also, with regard to the appearance of this pulmonary embolism, I can discuss with Radiology, but there are no obvious findings on imaging to suggest this is a chronic pulmonary embolism. She has had an echocardiogram done this admission which shows there was not enough of a TR jet to measure PA pressures. The patient and her daughter especially typically have a lot of questions about her medical therapy. Daughter is not at the bedside currently. With regards to the Trilogy, I have spoken with them during their last outpatient visit a few weeks ago, and again my nurse has spoken with them on the phone about the Trilogy. I explained to the patient again that just as her O2 saturations are low from her emphysema and chronic obstructive pulmonary disease, her carbon dioxide can go up in the blood because her lung is not removing carbon dioxide normally. Wearing the Trilogy at night gets her larger volume of breath which removes more carbon dioxide. This would help keep her carbon dioxide stable, especially during exacerbations and also to some extent reduce the number of exacerbations. She needs to wear it every night while sleeping and also during the daytime as needed for naps and also for episodes of worsening shortness of breath or exacerbations. With regards to her lung function, we did repeat her pulmonary function tests recently, and her FEV1 was 33%. DLCO was also around 33%. Both of these are consistent with severe chronic obstructive pulmonary disease and severe emphysema and pretty stable compared to her last pulmonary function tests which were done, I believe, at an outside center. Please feel free to convey this information to the patient. Apparently, her daughter was requesting a printout of the pulmonary function test report. It is fine to get this to them. I am available for questions if any. Please contact me if needed.
--- NOTE | 2016-11-12 13:52 | PCM.PHAPRO ---
Progress Difficulty breathing Warfarin per Pharmacy (day) [address] [facility] DFF wf Date Nov 12-Oct INR 1.01 1.00 INR change -0.01 Warf Dose 5 5 Day 2 of Warfarin initiation will continue with 5mg warfarin Yazan Jaramillo [facility] Nov 12, 2016 13:52
--- NOTE | 2016-11-12 16:33 | NUR ---
neck pain pt requests a hot pad and pain medication for her neck pain. pt states that her neck feels weak and not very strong. 975 Tylenol given with hot pack in pillow case.
--- NOTE | 2016-11-12 19:26 | PCM.PNMED ---
Subjective Date of Service Nov 12, 2016 Subjective Patient reports feeling well this morning, she does endorse some lightheaded feelings of breathlessness when getting up and going to the bathroom. She continues to have back pain and neck pain however the back pain is much improved with the pain medication. She had a medium to small bowel movement yesterday which she feels better after however feels like it should have been larger. Exam Vital Signs Vital Sign - Last Date Time Temp Pulse Resp B/P Pulse Ox O2 Delivery O2 Flow Rate FiO2 11/12/16 04:33 36.7 92 18 107/68 94 Room Air 11/10/16 11:37 1.00 Intake and Output 11/11/16 11/11/16 11/12/16 Cumulative From/Thru 15:00 23:00 07:00 11/09/16 04:19 - 11/12/16 06:12 Intake Total 1133 ml 790 ml 7141 ml Output Total 525 ml 1000 ml 5900 ml Balance 608 ml -210 ml 1241 ml Intake Oral 837 ml 790 ml 6383 ml IV Total 296 ml 748 ml Tube Irrigant 10 ml Output Urine Total 525 ml 1000 ml 5900 ml # Voids 4 # Bowel Movements 0 3 Exam General: No acute distress, well-developed, well-nourished, appropriately interactive HEENT: Normocephalic, atraumatic. External ears without defect. Pupils equal, round, and reactive to light and accommodation. Anicteric sclerae, moist conjunctivae, and no lid lag. Oropharynx free of erythema and cobble stoning with moist mucosa. Trilogy nasal cannula in place Neck: Supple with full range of motion. No jugular venous distension. No lymphadenopathy or thyromegaly. Cardiovascular: Regular rate and rhythm with no murmurs, rubs, or gallops appreciated Pulmonary: Poor air movement, Clear to auscultation bilaterally with no crackles , wheezes, or rhonchi. Normal respiratory effort with no use of accessory muscles. Abdomen: Bowel tones present. Mild Fullness of the left lateral abdomen; left prominent than yesterday, soft, nontender, nondistended. No hepatosplenomegaly or masses appreciated. Extremities: No clubbing, cyanosis, edema, or lymphadenopathy appreciated. Skin: Normal temperature, turgor, and texture; no rash, ulcers, or subcutaneous nodules appreciated. Neurological: Cranial nerves grossly intact. Normal muscle strength, tone, and bulk. No known gait impairment. Psychiatric: Normal mood and affect. Alert and oriented to person, place, and time. Lab and Diagnostics Result Diagram: 11/11/1661411/11/16614 X-Rays, CTs and MRIs PROCEDURE: CT ANGIO CHEST PULMONARY EMBOLISM IMPRESSION: 1. Right sided pulmonary emboli as described above. 2. Severe emphysema. 3. Findings discussed with Dr. Brandon on 11.09.16 at 0830 hrs. Dictated by: Gino Donis M.D. on 11/09/2016 at 8:29 US VENOUS ARM DUPLEX UNILATERAL, LEFT IMPRESSION: No evidence of left upper extremity DVT. Dictated by: Gino Donis M.D. on 11/09/2016 at 8:33 12-lead ECG NSR, no ST changes, normal axis Cardiac Echo Impressions Echocardiogram Report Interpretation Summary Normal sinus rhythm. Normal LV size, wall thickness, wall motion and LV systolic function. EF is 55-60%. No evidence of diastolic dysfunction. There is mildly dilated RV with borderline reduced RV function. No significant valvular abnormalities. Can not estimate PA systolic pressure due to lack of significant TR jet. Compared to prior study 06/14/2013 RV dilation is new. Additional Diagnostics Prior Colonoscopy FINDINGS: 1. Scattered diverticula were seen throughout the left colon. 2. Small internal hemorrhoids were noted on retroflexion. IMPRESSION: 1. Left-sided diverticulosis. 2. Small internal hemorrhoids. RECOMMENDATIONS: 1. Fiber-rich diet. 2. Follow up in GI clinic as needed. 3. Repeat colonoscopy in five years. Hien Mcdermott MD 09/25/16 1427 Assessment & Plan Kiet Quintana is a 61 year old woman with past medical history significant for severe emphysema and prior questionably unprovoked PE 18 months ago who presented to the [facility] ED due to difficulty breathing and right arm swelling. Now under treatment for PE. 1. Right sided pulmonary embolism, present on admission -Based on the patient's history this appears an unprovoked PE -Patient was not previously worked up for hypercoagulability -Patient already started on heparin so only some of the hypercoagulability work up can be initiated but she will need to follow up about this with hematology -on anticoagulation with lovenox, warfarin initiated today. -ECHO as above -Patient is hemodynamically stable so no real indication for EKOS -Telemetry -Cancer screening appropriate for age includes outpatient follow-up of prior abnormal mammogram. Last colonoscopy was 09/25/2016 results above. Lung nodule identified on prior CT exam does not appear to be noted on most recent CT exam, May need HRCT outpt -RPR nonreactive, and the screen negative, anticardiolipin IgG and IgA antibodies negative, complement C3 and C4 normal, P and C-ANCA normal -Lovenox teaching as patient may be able to discharge with bridging therapy. -Considered use of NOACs in place of warfarin for anticoagulation. Prescription provided to social work for prior authorization. Expense is too great therefore patient starting on warfarin, working on approval for Lovenox bridging therapy 2. Severe COPD, not in exacerbation -Patient was started on Prednisone 40 MG PO DAILY in the ED 2 days prior to admission, was discontinued at this time -Hold home inhalers, DuoNeb QID while awake with albuterol PRN Q2 -Keep O2 saturation between 88 - 92% -continue home Triology -Patient sees wheel filler Dr. Gerardo me outpatient, thankful for her input 3. GERD -Continue home Omeprazole 4. Degenerative joint disease -Continue home oxycodone increased to 15 mg every 4 hours when necessary -K-pad ordered for heat therapy 5. Constipation, acute on chronic - Home MiraLAX daily - Colace given today - Rectal bisacodyl suppository induced small to medium-sized bowel movement, repeat medication requested 6. Depression -Continue home medications: Bupropion-SR 150 MG, Citalopram 20 Mg PO DAILY, Trazodone 50 MG PO HS 7. Spinal stenosis 8. Fibromyalgia CODE STATUS: DNR, patient would like to be intubated if necessary. Patient is admitted under inpatient status with expected length of stay greater than 2 midnights due to severity of presenting symptoms, risk of adverse event, and complexity of treatment plan. Patient likely to discharge tomorrow based on clinical course and anticoagulation. Pain Evaluation: Adequate Pain Control GI Prophylaxis: Proton Pump Inhibitor VTE Prophylaxis: Sub-Q Enoxaparin VTE Mechanical Devices: Intermittant Pneumatic CD, Venous Foot Pump Resuscitation Status: Limited Interventions Limited Interventions: Intubation w Mech Vent, BiPAP, Medications and IV Fluid Attending Statement The patient was seen and examined independently on 11/12/2016 and case discussed with Dr. Worrell , I agree with the history, exam and plan as outlined in the note above. Natacha Worrell DO Nov 12, 2016 06:14 Jonatan Parikh MD Nov 13, 2016 07:21
--- NOTE | 2016-11-13 02:50 | NUR ---
SOB Pt became quite SOB after returning from [place], was breathing quite heavy and SpO2 was 89% on RA. Pt was placed on 2L via NC briefly and SpO2 returned to 97%.
[2016-11-13 05:49] VITALS: PULSE 93; RESP 18; O2SAT 98
[2016-11-13] MEDS: Albuterol-Ipratropium 3 mL Inhalation Solution NEB SCH ×2 (05:49→10:57)
[2016-11-13 05:53] VITALS: BP_SYST 105; BP_SYST 84; BP_DIAS 63; BP_DIAS 65; PULSE 93; RESP 18; O2SAT 100
[2016-11-13 07:08] LABS: Mean Corpuscular Hemoglobin 26.7 pg (27.0-35.0); Mean Corpuscular Volume 85.4 fL (81-100)
[2016-11-13 07:23] LABS: INR 1.02 ratio
[2016-11-13] MEDS: Pantoprazole 40 mg ER24 Tablet PO SCH (08:58)
[2016-11-13] MEDS: Polyethylene Glycol (PEG) 17 Gm Powder PO SCH (08:59)
[2016-11-13] MEDS ORDERED: LOV80 SUBQ (10:55)
[2016-11-13 10:58] VITALS: PULSE 84; RESP 18; O2SAT 98
--- NOTE | 2016-11-13 11:40 | NUR ---
Faxed scripts to [facility] and asked for copay per PAIL TESTER
[2016-11-13 12:46] VITALS: BP 106/68; PULSE 77; RESP 16; O2SAT 98
--- NOTE | 2016-11-13 13:29 | NUR ---
Social Work: Readiness for d/c Data: Pt is on day 4 of hospitalization. EMR reviewed. Pt discussed in rounds. MD states pt likely ready for d/c today, requested [employer] SPECIALIST run pt's prescription for Lovenox. Pt states their preferred pharmacy is [facility]. UR specialist requested insurance coverage information. Pharmacy called [employer] SITE SERVICES SPECIALIST back, pt's co-pay will be $5. [employer] SITE SERVICES SPECIALIST notified MD. No further d/c planning needs at this time. [employer]ITE SERVICES SPECIALIST will continue to follow if needs arise. Assessment: Pt who is independent at baseline. Plan: Pt will d/c home via POV today. No further d/c planning needs at this time. [employer] SPECIALIST will continue to follow if needs arise. SAMI Holley
--- NOTE | 2016-11-13 14:12 | PCM.DIMED ---
Natacha Worrell 11/13/16 1402: Discharge Instructions Date of Service Nov 13, 2016 Dates of Hospitalization Nov 09, 2016 at 09:11 Discharge Diagnosis Discharge Diagnosis 1. Right-sided pulmonary embolism 2. Severe COPD 3. GERD 4. Degenerative joint disease 5. Constipation 6. Depression 7. Chronic hypoxic hypercapnic respiratory failure Medication Instructions Inject Lovenox twice daily. Continue taking warfarin daily. He will need to follow up with INR clinic in 5- 7 days to make sure you are therapeutic on warfarin and can discontinue taking the Lovenox. Continue using your Trilogy machine at night and as needed during the day. Follow up with the cdl service technician and Dr. Gerardo to see if there can be a change that will not induce neck pain upon inspiration. Diet Heart Healthy Activity No restrictions Call your provider Fever or Chills, Shortness of breath, Chest pain, Excessive diarrhea, Weakness ( unilateral) Patient Instructions You have been treated for a pulmonary embolism. You will need to be on some form of anticoagulation for the rest of your life. We attempted to have printed back that approved however even with insurance coverage it was cost prohibitive. Currently we have you bridging from Lovenox to warfarin. You can follow up with your primary care provider. He will need to have your INR checked regularly. Initially it will be more often. Oxygen saturations in your blood are low from emphysema and chronic obstructive pulmonary disease, carbon dioxide can go up in the blood because your lung is not removing carbon dioxide normally. Wearing the Trilogy at night gets used to have a larger volume of breath which removes more carbon dioxide. This will help keep your carbon dioxide stable, especially during exacerbations and also to some extent reduce the number of exacerbations. You need to wear it every night while sleeping and also during the daytime as needed for naps and also for episodes of worsening shortness of breath or exacerbations. Repeat pulmonary function tests show FEV1 was 33%, DLCO was also around 33% both of these are consistent with severe COPD and severe emphysema and stable compared to previous pulmonary function tests. Follow-up plan Follow-up with your primary care provider regarding anticoagulation Follow-up with Dr. Gerardo as needed. Resume pulmonary rehabilitation Follow-up Provider: Ulises Chou DO Follow-up with PCP in: 1 week Provider: Mavis Gerardo MD Follow-up in: 4 weeks Jonatan Parikh MD 11/13/16 4317: Discharge Instructions Attending's Statement The patient was seen and examined on 11/13/2016 with , I agree with the discharge instructions as outlined in the note above. Natacha Worrell DO Nov 13, 2016 14:02 Jonatan Parikh MD Nov 13, 2016 14:37
[2016-11-13] MEDS ORDERED: WARF5TAB7 PO (14:21)
--- NOTE | 2016-11-13 15:13 | NUR ---
Discharge Pt discharged home with daughter via private vehicle. Pt alert and oriented, able to make needs known, verbalized understanding of discharge and new Rx instructions, personal belongings accounted for and left with pt.
--- NOTE | 2016-11-13 15:16 | NUR ---
Social Work: Discharge Data: Pt is on day 4 of hospitalization. D/C orders are in. EMR reviewed. No further d/c planning needs. [employer] will continue to follow if needs arise. Assessment: Pt who is independent at baseline. Plan: Pt will d/c home via POV today. No further d/c planning needs. [employer] will continue to follow if needs arise. SAMI Holley
--- NOTE | 2016-11-13 20:08 | PCM.DC.MED ---
Discharge Summary Date of Service Nov 13, 2016 Dates of Hospitalization Date of Hospital Admission Nov 09, 2016 at 09:11 Date of Discharge: Nov 13, 2016 Providers: Admitting Physician: Prince Sheth MD Primary Care Physician: Ulises Chou DO Attending Physician: Prince Sheth MD Diagnosis at Time of Discharge Diagnosis at Time of Discharge 1. Right-sided pulmonary embolism 2. Severe COPD 3. GERD 4. Degenerative joint disease 5. Constipation 6. Depression 7. Chronic hypoxic hypercapnic respiratory failure Consultations Pharmacy for warfarin dosing Pulmonology Procedures XRay, CTs & MRIs PROCEDURE: CT ANGIO CHEST PULMONARY EMBOLISM IMPRESSION: 1. Right sided pulmonary emboli as described above. 2. Severe emphysema. 3. Findings discussed with Dr. Brandon on 11.09.16 at 0830 hrs. Dictated by: Gino Donis M.D. on 11/09/2016 at 8:29 US VENOUS ARM DUPLEX UNILATERAL, LEFT IMPRESSION: No evidence of left upper extremity DVT. Dictated by: Gino Donis M.D. on 11/09/2016 at 8:33 ECG 12 Lead NSR, no ST changes, normal axis Cardiac Echo Impression Echocardiogram Report Interpretation Summary Normal sinus rhythm. Normal LV size, wall thickness, wall motion and LV systolic function. EF is 55-60%. No evidence of diastolic dysfunction. There is mildly dilated RV with borderline reduced RV function. No significant valvular abnormalities. Can not estimate PA systolic pressure due to lack of significant TR jet. Compared to prior study 06/14/2013 RV dilation is new. Other Diagnostics Prior Colonoscopy FINDINGS: 1. Scattered diverticula were seen throughout the left colon. 2. Small internal hemorrhoids were noted on retroflexion. IMPRESSION: 1. Left-sided diverticulosis. 2. Small internal hemorrhoids. RECOMMENDATIONS: 1. Fiber-rich diet. 2. Follow up in GI clinic as needed. 3. Repeat colonoscopy in five years. Hien Mcdermott MD 09/25/16 1512 Brief History History of present illness on admission per Dr. Rousseau: Kiet Quintana is a 61 year old woman with past medical history significant for severe emphysema and prior questionably unprovoked PE 18 months ago who presented to the [facility] ED due to difficulty breathing and right arm swelling. The patient was seen in the ED yesterday with complaint of left leg swelling and shortness of breath but was discharged back home with diagnosis of COPD exacerbation after a negative lower extremity U/S. The patient states that for the last few days she has been feeling like she "has a blood clot." She cannot elucidate the symptoms further but did note worsening shortness of breath and felt like she did with her prior PE. She noticed left ankle swelling and discoloration of that ankle as well patches of her skin discolored. Patient reports that she has noticed the swelling of her arm for several weeks but she states it was worse this morning and appeared red. Her last PE occurred 18 months ago at [facility] after her back surgery for spinal stenosis. At the time the PE was attributed to the surgery. The patient had an 8 day stay in the ICU for the PE and simultaneous HCAP. She took warfarin for 6 months and then stopped as she was instructed. No coagulopathy work up was completed per the patient. She also notes increased SOB, noting that she has had to use her rescue inhaler 3 times in the past 12 hours and she typically only uses it twice a day. Patient is on home O2. In the ED her vitals were T 36.8 HR 86 RR 16 BP 127/83 O2 Sat 99% on room air. CTA of chest showed a right sided pulmonary embolism. She was started on a heparin drip. Hospital Course Kiet Quintana is a 61 year old woman with past medical history significant for severe emphysema and prior questionably unprovoked PE 18 months ago who presented to the [facility] ED due to difficulty breathing and right arm swelling. Now under treatment for PE. 1. Right sided pulmonary embolism, present on admission -Based on the patient's history this appears an unprovoked PE -Patient was not previously worked up for hypercoagulability -Patient already started on heparin so only some of the hypercoagulability work up can be initiated but she will need to follow up about this with hematology -on anticoagulation with lovenox bridging to warfarin, plans to follow-up in the [facility] INR clinic -ECHO as above -Patient is hemodynamically stable so no real indication for EKOS -Cancer screening appropriate for age includes outpatient follow-up of prior abnormal mammogram. Last colonoscopy was 09/25/2016 results above. Lung nodule identified on prior CT exam does not appear to be noted on most recent CT exam, May need HRCT outpt -RPR nonreactive, and the screen negative, anticardiolipin IgG and IgA antibodies negative, complement C3 and C4 normal, P and C-ANCA normal -Considered use of NOACs in place of warfarin for anticoagulation. Expense is too great therefore patient starting on warfarin, with Lovenox bridging therapy 2. Severe COPD, not in exacerbation -Patient was started on Prednisone 40 MG PO DAILY in the ED 2 days prior to admission, was discontinued -Resumed home inhalers on discharge -Keep O2 saturation between 88 - 92% -continue home Triology at night and as needed during the day -Patient sees music minister Dr. Gerardo pa outpatient, thankful for her input 3. GERD - Omeprazole 4. Degenerative joint disease -Continue home oxycodone increased to 15 mg every 4 hours when necessary while inpatient, resume home dose upon discharge. 5. Constipation, acute on chronic - Home MiraLAX daily - Rectal bisacodyl suppository induced bowel movements 6. Depression -Continue home medications: Bupropion-SR 150 MG, Citalopram 20 Mg PO DAILY, Trazodone 50 MG PO HS 7. Spinal stenosis 8. Fibromyalgia CODE STATUS: DNR, patient would like to be intubated if necessary. Exam Vital Signs (Last) Date Time Temp Pulse Resp B/P Pulse Ox O2 Delivery O2 Flow Rate FiO2 11/13/16 12:46 37.1 77 16 106/68 98 Nasal Cannula 1.50 Exam General: No acute distress, well-developed, well-nourished, appropriately interactive HEENT: Normocephalic, atraumatic. External ears without defect. Pupils equal, round, and reactive to light and accommodation. Anicteric sclerae, moist conjunctivae, and no lid lag. Oropharynx free of erythema and cobble stoning with moist mucosa. nasal cannula in place Neck: Supple with full range of motion. No jugular venous distension. No lymphadenopathy or thyromegaly. Cardiovascular: Regular rate and rhythm with no murmurs, rubs, or gallops appreciated Pulmonary: Poor air movement, Clear to auscultation bilaterally with no crackles , wheezes, or rhonchi. Normal respiratory effort with no use of accessory muscles. Abdomen: Bowel tones present, soft, nontender, nondistended. No hepatosplenomegaly or masses appreciated. Extremities: No clubbing, cyanosis, edema, or lymphadenopathy appreciated. Skin: Normal temperature, turgor, and texture; no rash, ulcers, or subcutaneous nodules appreciated. Neurological: Cranial nerves grossly intact. Normal muscle strength, tone, and bulk. No known gait impairment, mild memory loss suspected with repeating of questions. Psychiatric: Normal mood and affect. Alert and oriented to person, place, and time. Test 11/09/16 08:53 11/09/16 10:12 11/09/16 15:15 11/11/16 13:55 Hold [place] Top Tube Received (Received) Magnesium Level 2.0mg/dL (1.6-2.6) Troponin T 0.010ug/L (0.0-0.011) Anti-Nuclear Antibody Screen Negative (Negative) Cytoplasmic ANCA (c-ANCA) Antibody <1:20titer (Neg:<1:20) Atypical p-ANCA <1:20titer (Neg:<1:20) Perinuclear ANCA (p-ANCA) Antibody <1:20titer (Neg:<1:20) Anti-Cardiolipin IgG Antibody < 9GPL U/mL (0-14) Anti-Cardiolipin IgA Antibody < 9APL U/mL (0-11) Complement C3 123mg/dL (82-167) Complement C4 19mg/dL (14-44) Rapid Plasma Reagin Non reactive (Non Reactive) Activated Partial Thromboplast Time 84.2sec (22.8-33.0) Test 11/12/16 07:09 11/13/16 06:20 Neutrophils (%) (Auto) 40.9% (40-74) Lymphocytes (%) (Auto) 44.8% (14-46) Monocytes (%) (Auto) 7.9% (4-12) Eosinophils (%) (Auto) 3.5% (0-5) Basophils (%) (Auto) 0.7% (0-3) White Blood Count 4.9th/mm3 (3.8-10.1) Red Blood Count 4.38mil/mm3 (3.90-5.20) Hemoglobin 11.7g/dL (12.0-15.6) Hematocrit 37.4% (35.0-46.0) Mean Corpuscular Volume 85.4fL (81-100) Mean Corpuscular Hemoglobin 26.7pg (27.0-35.0) Mean Corpuscular Hemoglobin Concent 31.3% (32.0-37.0) Red Cell Distribution Width 14.8% (12.3-15.4) Platelet Count 199bil/L (150-400) Prothrombin Time 10.9sec (8.1-12.5) Prothromb Time International Ratio 1.02ratio Sodium Level 141mEq/L (134-144) Potassium Level 4.8mEq/L (3.5-5.2) Chloride Level 101mEq/L (97-108) Carbon Dioxide Level 28mmol/L (18-29) Blood Urea Nitrogen 9mg/dL (8-27) Creatinine 0.90mg/dL (0.57-1.00) Estimat Glomerular Filtration Rate 82mL/min (>59) Glucose Level 104mg/dL (60-99) Calcium Level 9.6mg/dL (8.5-10.1) Total Bilirubin 0.4mg/dL (0.0-1.2) Aspartate Amino Transf (AST/SGOT) 36U/L (0-50) Alanine Aminotransferase (ALT/SGPT) 27U/L (0-32) Alkaline Phosphatase 89U/L (25-165) Total Protein 6.2g/dL (6.4-8.4) Albumin 3.7g/dL (3.4-5.0) Microbiology Results Stool occult blood negative 2 Discharge Medications Discharge Medications Budesonide/Formoterol 160-4.5 mcg Inh (Symbicort 160-4.5 mcg Inh) 120 Puff Inhaler 1 PUFF INHALATION BID (Reported) Citalopram (Citalopram) 20 Mg Tablet 20 MG PO DAILY (Reported) Enoxaparin (Lovenox) 80 Mg/0.8 Ml Syringe 80 MG SUBQ Q12 Prescribed by: BLAKE SOUZA DO Omeprazole (Omeprazole) 20 Mg Capsule.dr 20 MG PO BID (Reported) Trazodone (Trazodone) 50 Mg Tablet 50 MG PO HS (Reported) Warfarin Sodium (Warfarin Sodium) 5 Mg Tablet 5 MG PO DAILY Prescribed by: BLAKE SOUZA DO As needed Albuterol Neb Soln (Albuterol Neb Soln) 2.5 Mg/3 Ml Vial.neb 2.5 MG INHALATION Q4H PRN PRN For Shortness of Breath (Reported) Docusate Sodium (Docusate Sodium) 250 Mg Capsule 100 MG PO DAILY PRN PRN For Constipation (Reported) Oxycodone (Roxicodone) 5 Mg Tablet 10 MG PO Q4H PRN PRN For Pain (Reported) Miscellaneous Medications Albuterol Sulfate (Proair Respiclick) 90 Mcg Aer.pow.ba 90 MCG IH (Reported) Bupropion HCl (Zyban) 150 Mg Tablet.er 150 MG PO (Reported) Polyethylene Glycol 3350 (Miralax) 17 Gm Powd.pack 17 GM PO (Reported) Tiotropium [place] (Spiriva Respimat) 1.25 Mcg/Actuation Mist.inhal 4 GM IH ( Reported) Additional med instructions Inject Lovenox twice daily. Continue taking warfarin daily. He will need to follow up with INR clinic in 5- 7 days to make sure you are therapeutic on warfarin and can discontinue taking the Lovenox. Continue using your Trilogy machine at night and as needed during the day. Follow up with the air traffic systems technician and Dr. Gerardo to see if there can be a change that will not induce neck pain upon inspiration. Followup Plan Disposition: Discharged home Follow-up plan Follow-up with your primary care provider regarding anticoagulation Follow-up with Dr. Gerardo as needed. Resume pulmonary rehabilitation Discharge Diet: Heart Healthy Discharge Activity: No restrictions Patient Instructions You have been treated for a pulmonary embolism. You will need to be on some form of anticoagulation for the rest of your life. We attempted to have printed back that approved however even with insurance coverage it was cost prohibitive. Currently we have you bridging from Lovenox to warfarin. You can follow up with your primary care provider. He will need to have your INR checked regularly. Initially it will be more often. Oxygen saturations in your blood are low from emphysema and chronic obstructive pulmonary disease, carbon dioxide can go up in the blood because your lung is not removing carbon dioxide normally. Wearing the Trilogy at night gets used to have a larger volume of breath which removes more carbon dioxide. This will help keep your carbon dioxide stable, especially during exacerbations and also to some extent reduce the number of exacerbations. You need to wear it every night while sleeping and also during the daytime as needed for naps and also for episodes of worsening shortness of breath or exacerbations. Repeat pulmonary function tests show FEV1 was 33%, DLCO was also around 33% both of these are consistent with severe COPD and severe emphysema and stable compared to previous pulmonary function tests. Follow-up Provider: Ulises Chou DO Follow-up with PCP in: 1 week Provider: Mavsi Gerardo MD Follow-up in: 1 week Time spent 40 minutes coordinating discharge and counselling Attending Statement The patient was seen and examined independently on 11/13/2016 and case discussed with Dr. Souza , I agree with the discharge summary as outlined in the note above. copies to: Ulises Chou DO; Mavis Gerardo MD, Erika R DO Nov 13, 2016 20:08 Jonatan Parikh MD Nov 14, 2016 07:07
[2016-11-14 22:07] LABS: dRVVT 39.8 sec (0.0-44.0)
[2017-01-13] MEDS ORDERED: WARF5TAB7 PO ×2 (14:11)
[2017-01-13] MEDS ORDERED: MORP15TA PO (14:11)
== END 2016-11-13 15:00 | disposition home or self-care (01) | DRG 176 ==
LOC: SED 04:14 → MPC 09:11
PROVIDERS: ADMIT Family Medicine; ATTEND Family Medicine
DX: I26.99 Other pulmonary embolism without acute cor pulmonale (principal); J96.11 Chronic respiratory failure with hypoxia; J96.12 Chronic respiratory failure with hypercapnia; Z79.52 Long term (current) use of systemic steroids; Z99.81 Dependence on supplemental oxygen; J44.9 Chronic obstructive pulmonary disease, unspecified; K21.9 Gastro-esophageal reflux disease without esophagitis; M19.90 Unspecified osteoarthritis, unspecified site; F32.9 Major depressive disorder, single episode, unspecified; Z86.711 Personal history of pulmonary embolism; K59.00 Constipation, unspecified; Z66 Do not resuscitate; Z87.891 Personal history of nicotine dependence

== ENCOUNTER 2017-03-05 23:21 | Emergency (ER) | payer MEDICARE ==
[~2017-03-05] VITALS: Ht 167.6 cm; Wt 85.0 kg
[~2017-03-05 23:21] MED LIST changes: -ALBUTHFA INH; -BPR150TCR PO; -BUPR150T9 PO; -CITA20TA2 PO; -DOCU250C2 PO; +MORP15TA PO; -OMEP20CA11 PO; +OXYC-474 PO; -PRE20 PO; +SYMINH INHALATION; -TIOT4MIS5 IH; -TRAZ50TA52 PO; +WARF5TAB7 PO
[2017-03-05 23:25] VITALS: BP 135/68; PULSE 81; RESP 20; O2SAT 100
--- NOTE | 2017-03-05 23:36 | ED.REPORT ---
HPI-Chest Pain 40 and Over Date of Service Mar 05, 2017 ED Provider: Blayne Sanchez MD A 61 year old female on Warfarin with a history of COPD, pulmonary embolism, fibromyalgia and spinal stenosis is brought to the ED via EMS due to chest pain. The pain is described as "sharp pain" that began suddenly eight hours ago and is concentrated "under the rib" on her left side. The pain is exacerbated by movement and deep breathing, ranging between 5/10 and 7/10. The pt admits to nausea but denies lower extremity edema, fever, rash or vomiting. She also denies trauma. The pt tried a breathing treatment at home without relief. She has experienced similar symptoms before when she was diagnosed with a pulmonary embolism. Her INR was checked six days ago and was therapeutic at that time. Nursing Notes Stated Complaint: CHEST PAIN Chief Complaint: Chest Pain Nursing Notes Reviewed: Yes ([facility] not reconcileed - EMR indicates warfarin use) Allergies: Coded Allergies: Sulfa (Sulfonamide Antibiotics) (Verified Allergy, Severe, 03/05/17) doxycycline (Verified Allergy, Unknown, 03/05/17) Scheduled Budesonide/Formoterol 160-4.5 mcg Inh (Symbicort 160-4.5 mcg Inh) 120 Puff Inhaler 2 PUFF INHALATION BID Citalopram (Citalopram) 20 Mg Tablet 40 MG PO DAILY Morphine Sulfate (Morphine Sulfate) 15 Mg Tablet 15 MG PO BID Trazodone (Trazodone) 50 Mg Tablet 100 MG PO HS Warfarin Sodium (Warfarin Sodium) 5 Mg Tablet 10 MG PO ,WFSASU Warfarin Sodium (Warfarin Sodium) 5 Mg Tablet 7.5 MG PO THUR Scheduled PRN Albuterol Neb Soln (Albuterol Neb Soln) 2.5 Mg/3 Ml Vial.neb 2.5 MG INHALATION Q4H PRN PRN For Shortness of Breath Oxycodone (Roxicodone) 5 Mg Tablet 15 MG PO Q4H PRN PRN For Pain Miscellaneous Medications Albuterol Sulfate (Proair Respiclick) 90 Mcg Aer.pow.ba 90 MCG IH Polyethylene Glycol 3350 (Miralax) 17 Gm Powd.pack 17 GM PO General Time Seen by MD: 23:35 Chief Complaint Chest pain Hx Obtained From: Patient, EMS Arrived By: Ambulance Sudden in Onset?: Yes Onset Occurred: 5 - 8 hours ago Symptom Duration: Since onset Recent Healthcare: Recent doctor visit, Recent hospitalization Similar Sx Previous: Yes Past Medical History Past Medical History Notes: Simulation Developer Dr. Ayala Smoke Inspector Dr. Gerardo Past Medical History 1. COPD (severe, O2 dependent, with history of chronic hypoxic hypercapnic respiratory failure, uses Trilogy device at home, FEV1 of 33%, and DLCO 33%) 2. Spinal stenosis. 3. Fibromyalgia. 4. History of endometriosis, status post hysterectomy and bilateral oophorectomy. 5. GERD. 6. Questionable history of peptic ulcer disease. 7. History of retinal hemorrhage status post multiple eye surgeries. 8. Degenerative joint disease. 9. Hx of pulmonary embolism x2 (most recent pulmonary embolus was October 2016 with right-sided emboli, lifelong anticoagulation recommended-patient on warfarin) Past Surgical History Rotator Cuff surgery Cholecystectomy with subsequent gallstone removal Hysterectomy and bilateral oophorectomy Multiple eye surgeries Vaginal prolapse status post surgical repair in 1984. Status post cataract removal in 2011 bilaterally. Status post colonoscopy in 2009 with polypectomy. Lumbar sugery in 2006 Family History Noncontributory Smoking History Former Smoker Social History Alcohol Use: Denies alcohol use Other Social History: Good social support, Local resident Ambulatory Status Independent Review of Systems Review of Systems Note: denies lower extremity edema Constitutional: Denies: Fever Respiratory: Reports: Pleuritic pain, Denies: Non-productive cough, Shortness of breath Cardiovascular: Reports: Chest pain GI: Reports: Nausea, Denies: Abdominal pain, Vomiting Skin: Denies Rash Complete sys rev & neg: except as marked. Physical Exam Initial Vital Signs Vital Signs (First) Date Time Temp Pulse Resp B/P Pulse Ox O2 Delivery O2 Flow Rate FiO2 03/05/17 23:25 36.8 81 20 135/68 100 Room Air Initial VS: Reviewed, Vital signs normal General/Constitutional: Awake, Alert Respiratory / Chest: Atraumatic, Breath sounds NL, Breath sounds = bilat, No respiratory distress pleuritic discomfort Cardiovascular: Heart rate NL, Regular rhythm, Heart sounds NL Abdomen: Atraumatic, Soft, Non-tender Neck: Atraumatic, Supple, Full range of motion Back: Atraumatic, Full range of motion Lower Extremity / Pelvis / MS: Atraumatic, Full range of motion Skin: Atraumatic, Color NL, No rash, Warm, Dry Neurologic: Oriented X3, Speech NL, No motor deficits, No sensory deficits Psychiatric: Affect NL, Mood NL Head / Eyes: Atraumatic, Normocephalic, PERRL, EOMI ENT: Atraumatic, Airway patent, Mucous membranes moist Upper Extremity / MS: Atraumatic, Full range of motion Interpretation & Diagnostics Interpretation & Diagnostics: CT Pulmonary Angiogram: CONCLUSION: No evidence of pulmonary embolism or thoracic aortic dissection. Advanced emphysema changes of the upper lungs without pneumothorax. Minimal dependent atelectatic changes otherwise lungs are clear. Lab Results Interpretation Result Diagram: 03/05/17 2338 03/05/17 2338 Test 03/05/17 23:38 White Blood Count 3.8th/mm3 (3.8-10.1) Red Blood Count 4.20mil/mm3 (3.90-5.20) Hemoglobin 11.6g/dL (12.0-15.6) Hematocrit 35.6% (35.0-46.0) Mean Corpuscular Volume 84.8fL (81-100) Mean Corpuscular Hemoglobin 27.6pg (27.0-35.0) Mean Corpuscular Hemoglobin Concent 32.6% (32.0-37.0) Red Cell Distribution Width 13.6% (12.3-15.4) Platelet Count 176bil/L (150-400) Neutrophils (%) (Auto) 48.7% (40-74) Lymphocytes (%) (Auto) 38.7% (14-46) Monocytes (%) (Auto) 8.9% (4-12) Eosinophils (%) (Auto) 2.9% (0-5) Basophils (%) (Auto) 0.8% (0-3) Hold Purple Top Tube Received (Received) Prothrombin Time 21.1sec (8.1-12.5) Prothromb Time International Ratio 1.95ratio D-Dimer < 0.50mg/L FEU (<0.50) Hold Blue Top Tube Received (Received) Sodium Level 138mEq/L (134-144) Potassium Level 4.3mEq/L (3.5-5.2) Chloride Level 98mEq/L (97-108) Carbon Dioxide Level 28mmol/L (18-29) Blood Urea Nitrogen 11mg/dL (8-27) Creatinine 0.86mg/dL (0.57-1.00) Estimat Glomerular Filtration Rate 87mL/min (>59) Glucose Level 103mg/dL (60-99) Calcium Level 9.2mg/dL (8.5-10.1) Magnesium Level 1.8mg/dL (1.6-2.6) Total Bilirubin 0.4mg/dL (0.0-1.2) Aspartate Amino Transf (AST/SGOT) 22U/L (0-50) Alanine Aminotransferase (ALT/SGPT) 14U/L (0-32) Alkaline Phosphatase 123U/L (25-165) Troponin T 0.010ug/L (0.0-0.011) Total Protein 7.0g/dL (6.4-8.4) Albumin 4.1g/dL (3.4-5.0) Hold [place] Top Tube Received (Received) Lab Results Interpretation: CBC nl CMP normal INR near therapeutic X-Ray Chest Interpretation Chest Xray Interpretation: no acute findings Interpretation / Wet Read by: Wet read ED physician Re-Eval/Medical Decision Med Decision/Clinical Course This is a 61-year-old female severe COPD he also has a history of 2 previous pulmonary embolisms who is anticoagulated on warfarin and presents complaining of acute pleuritic chest discomfort she says is identical in character when she last had a pulmonary embolism. As fevers, chills, or additional symptoms. She denies nausea vomiting. She has no new leg swelling. No additional complaints. She does not appeared acute distress in the department. There is no audible bronchospasm, she does not appear informed her respiratory distress, but she does appear uncomfortable with inspiration. Chest x-ray is negative for pneumothorax. Blood work revealed near therapeutic INR is otherwise normal. EKG revealed no acute ischemic abnormalities. Given she has had 2 prior PEs, reports this is identical I-this represents moderate risk and a CT Annia was obtained, was negative for pulmonary embolus or alternate clear definitive cause. Patient see some titrated pain medicine with improvement. At this point a dangerous etiology has not been identified-there is no evidence of recurrent pulmonary embolus, no pneumothorax, no pneumonia. I am not funny indication the patient requires hospitalization. She see some titrated pain medicine with improvement. Routine and return precautions reviewed. The patient being discharged in stable condition. Source of Hx: Old records Time of Eval: 02:22 Patient Status: Condition improved Re-Evaluation/Progress Note: Pt rechecked, who is resting comfortably. The diagnosis and plan for discharge are discussed. The pt understands and agrees with the plan. All questions are addressed at this time. Differential Diagnosis: Positive: Chest pain, acute, Negative: Acute coronary syndrome, Acute myocardial infarct, Congestive heart failure, Dysrhythmia, Esophageal rupture, Gun shot wound chest, Myocardial infarction, Pneumomediastinum, Pneumonia, Pneumothorax, Pulmonary edema, Pulmonary embolism, Rib fracture, Stab wound chest Counseled Regarding: Diagnosis, Lab results, Need for follow-up, When/why to return to ED Discharge & Departure Primary Impression: Pleuritic chest pain Additional Impression: Anticoagulated on warfarin Disposition: Home Discharge Condition All VS Reviewed: Yes Condition: Stable Additional Instructions: 1. Your test did not reveal signs of another blood clot or pulmonary embolus. 2. A dangerous cause of her pleuritic chest pain was not identified-there is no pneumonia, no pneumothorax, no pulmonary embolus. 3. Continue your warfarin at the current dosing. 4. Usually, symptoms of this sort resolve with time. 5. Continue your morphine. 6. Add Tylenol 1000 mg 3 times a day to help with pain. 7. Activities as tolerated. 8. Return again if new, worsening, or uncontrolled symptoms occur. Referrals: Ulises Chou DO (PCP) [place] Attestation Portions of this note were transcribed by Soni Muniz. I, Dr. Sanchez personally performed the history, physical exam and medical decision-making; I reviewed and confirmed the accuracy of the information in the transcribed note. Signed by: Jacinto Mcintyre, 03/06/2017 and 0222. copies to: Ulises Chou Matthew F MD Mar 05, 2017 23:36 SONI MUNIZ Mar 05, 2017 23:44
[2017-03-05] MEDS ORDERED: Ondansetron 2 mg/mL 2 mL Inj IVPUSH ONE (23:45)
[2017-03-05 23:53] LABS: BASOPHILS % (AUTO) 0.8 % (0-3); EOSINOPHILS % (AUTO) 2.9 % (0-5); MONOCYTES % (AUTO) 8.9 % (4-12); Mean Corpuscular Hemoglobin 27.6 pg (27.0-35.0); Mean Corpuscular Volume 84.8 fL (81-100); NEUTROPHILS % (AUTO) 48.7 % (40-74); Platelet Count 176 bil/L (150-400)
[2017-03-06] MEDS: HYDROmorphone 0.5 mg/0.5 mL iSecure Syringe IVPUSH PRN ×2 (00:05→01:02)
[2017-03-06 00:20] LABS: D-Dimer < 0.50 mg/L FEU (<0.50); INR 1.95 ratio
[2017-03-06 00:43] LABS: Magnesium 1.8 mg/dL (1.6-2.6); TROPONIN T 0.01 ug/L (0.0-0.011)
[2017-03-06] MEDS ORDERED: HYDROmorphone 1 mg/mL Inj IVPUSH PRN (01:55)
[2017-03-06 02:22] VITALS: BP 110/56; PULSE 68; RESP 20; O2SAT 98
[2017-03-06 03:30] VITALS: BP 105/54; PULSE 70; RESP 20; O2SAT 95
--- NOTE | 2017-03-06 08:07 | DRSVH ---
PROCEDURE: X-RAY CHEST ONE VIEW, PORTABLE ([id number]) INDICATIONS: CHEST PAIN TECHNIQUE: One view of the chest was acquired. COMPARISON: 11/07/2016 FINDINGS: Surgical changes and devices: None. Lungs and pleura: No pleural effusions or pneumothorax. Lungs are clear. Upper lobes are hyperlucen t, right greater than left, compatible with emphysema. Lower lobe markings are accentuated bilaterall y, unchanged. No focal consolidation. Mediastinum: Mediastinal contours appear normal. Heart size is normal. Bones and chest wall: No suspicious bony lesions. Overlying soft tissues appear unremarkable. IMPRESSION: 1. No interval change to suggest acute cardiopulmonary abnormality. 2. Probable upper lobe emphysema right greater than left. Dictated by: Kp English M.D. on 03/06/2017 at 8:04 Approved by: Kp English M.D. on 03/06/2017 at 8:05
--- NOTE | 2017-03-06 08:08 | DRSVH ---
PROCEDURE: CT ANGIO CHEST PULMONARY EMBOLISM ([id number]) INDICATIONS: L Pleuritic CP, h/o PE x2 TECHNIQUE: After the administration of intravenous contrast, 2 mm thick sections acquired from the pulmonary api ham to the posterior costophrenic angles. 3-dimensional maximum intensity projection (MIP) coronal a nd sagittal reformats were then acquired through the thorax. For radiation dose reduction, the follo wing was used: automated exposure control, adjustment of mA and/or kV according to patient size. COMPARISON: [facility], CT, CT ANGIO CHEST PE, 11/09/2016, 8:22. FINDINGS: Image quality: Excellent. Pulmonary arteries: Pulmonary arteries are normal in size, and demonstrate no intraluminal filling d efects to suggest central pulmonary embolism. Lungs and pleura: There is severe centrilobular emphysema. Lungs are clear. No pleural effusions or pneumothorax. Central and peripheral airways are patent. Mediastinum: Heart size is normal, without pericardial effusion. No mediastinal or hilar adenopathy . Thoracic aorta is normal in caliber and enhancement. Esophagus is normal in caliber, without hiat al hernia. Bones and chest wall: No suspicious bony lesions. Ribs and thoracic spine appear intact throughout. Thyroid gland is normal. No axillary or supraclavicular adenopathy. Abdomen: Visualized upper abdominal solid organs appear normal in the early arterial phase of enhanc ement. IMPRESSION: 1. No acute central pulmonary emboli. 2. Severe emphysema. 3. Small hiatal hernia. No significant discrepancy with the maintenance supervisor 2nd shift radiology preliminary report. Dictated by: Aylin Hung M.D. on 03/06/2017 at 8:02 Approved by: Aylin Hung M.D. on 03/06/2017 at 8:06
[2017-03-06] MEDS ORDERED: PRE20 PO (14:19)
== END 2017-03-06 03:25 | disposition home or self-care (01) ==
LOC: SED 23:21
DX: R07.81 Pleurodynia (principal); J44.9 Chronic obstructive pulmonary disease, unspecified; K21.9 Gastro-esophageal reflux disease without esophagitis; M79.7 Fibromyalgia; Z79.01 Long term (current) use of anticoagulants; Z87.891 Personal history of nicotine dependence; Z88.1 Allergy status to other antibiotic agents; Z88.2 Allergy status to sulfonamides
CPT/HCPCS: 36415; 71010; 71275; 80053; 83735; 84484; 85025; 85378; 85610; 93005; 96374; 96376; 99285; J1170; J2405; Q9967

== ENCOUNTER 2017-03-06 11:35 | Emergency (ER) | payer MEDICARE ==
[~2017-03-06] VITALS: Ht 167.6 cm; Wt 85.0 kg
[2017-03-06 11:39] VITALS: BP 106/69; PULSE 84; RESP 20; O2SAT 98
[2017-03-06] MEDS ORDERED: predniSONE 20 mg Tablet PO ONE (12:50)
[2017-03-06] MEDS ORDERED: Albuterol-Ipratropium 3 mL Inhalation Solution NEB ONE (12:50)
[2017-03-06 13:24] VITALS: PULSE 66; RESP 18; O2SAT 91
[2017-03-06] MEDS ORDERED: Morphine ER 15 mg (MS Contin) Tablet PO ONE (13:55)
[2017-03-06 14:02] LABS: APPEARANCE,URINE CLEAR (CLEAR,HAZY); COLOR,URINE YELLOW (YELLOW); OCCULT BLOOD,URINE NEGATIVE (NEGATIVE); PH,URINE 5.5 (5.0-8.0); UROBILINOGEN,URINE NORMAL (NORMAL)
--- NOTE | 2017-03-06 14:18 | ED.REPORT ---
HPI-Dyspnea / Wheezing Date of Service Mar 06, 2017 ED Provider: Cynthia Maurer MD 61-year-old female with complicated past medical history including fibromyalgia , GERD, COPD presents with shortness of breath. The patient was here less than 24 hours ago with similar complaints. She states that since that time she has had one episode of incontinence, and she feels a "tingling tightness" in her throat. She used nebulized albuterol this morning, however, this had no effect on her symptoms. She complains of lower substernal pain which radiates to the epigastric area and along the lower portion of the left diaphragm. Pain is sharp 5-6/10. This pain has been constant since she was discharged yesterday. She is also concerned about the episode of incontinence or a tightness which she described. She denies chest pain, fever/chills, nausea, vomiting. Nursing Notes Stated Complaint: CHEST PAIN Chief Complaint: General Complaint Nursing Notes Reviewed: Yes Allergies: Coded Allergies: Sulfa (Sulfonamide Antibiotics) (Verified Allergy, Severe, 03/05/17) doxycycline (Verified Allergy, Unknown, 03/05/17) Scheduled Budesonide/Formoterol 160-4.5 mcg Inh (Symbicort 160-4.5 mcg Inh) 120 Puff Inhaler 2 PUFF INHALATION BID Citalopram (Citalopram) 20 Mg Tablet 40 MG PO DAILY Morphine Sulfate (Morphine Sulfate) 15 Mg Tablet 15 MG PO BID Prednisone (PredniSONE) 20 Mg Tablet 20 MG PO DAILY Take 40 mg for 2 days, 20 mg for 2 days, 10 mg for 2 days Trazodone (Trazodone) 50 Mg Tablet 100 MG PO HS Warfarin Sodium (Warfarin Sodium) 5 Mg Tablet 10 MG PO TU,WFSASU Warfarin Sodium (Warfarin Sodium) 5 Mg Tablet 7.5 MG PO THUR Scheduled PRN Albuterol Neb Soln (Albuterol Neb Soln) 2.5 Mg/3 Ml Vial.neb 2.5 MG INHALATION Q4H PRN PRN For Shortness of Breath Oxycodone (Roxicodone) 5 Mg Tablet 15 MG PO Q4H PRN PRN For Pain Miscellaneous Medications Albuterol Sulfate (Proair Respiclick) 90 Mcg Aer.pow.ba 90 MCG IH Polyethylene Glycol 3350 (Miralax) 17 Gm Powd.pack 17 GM PO General Time Seen by MD: 11:50 Chief Complaint Shortness of breath Hx Obtained From: Patient, Daughter Arrived By: Walk-in Sudden in Onset?: Yes Onset Occurred: 1 day ago Context of Onset: Anxiety Symptom Duration: Since onset Location: : Substernal Quality: Sharp Severity: Current: Pain level 6 out of 10 Recent Healthcare: Recent doctor visit Risk Factors CAD Risk Stratification Risk factors reviewed PE Risk Stratification Risk factors reviewed Well's Criteria for PE Well's PE Score: 0-2 pts (low risk 3.6%) Well's Criteria for DVT Well's DVT Score: 0 pts (low risk 5%) Past Medical History Past Medical History Notes: [employer] Dr. Ayala Coil Taper Dr. Gerardo Past Medical History 1. COPD (severe, O2 dependent, with history of chronic hypoxic hypercapnic respiratory failure, uses Trilogy device at home, FEV1 of 33%, and DLCO 33%) 2. Spinal stenosis. 3. Fibromyalgia. 4. History of endometriosis, status post hysterectomy and bilateral oophorectomy. 5. GERD. 6. Questionable history of peptic ulcer disease. 7. History of retinal hemorrhage status post multiple eye surgeries. 8. Degenerative joint disease. 9. Hx of pulmonary embolism x2 (most recent pulmonary embolus was October 2016 with right-sided emboli, lifelong anticoagulation recommended-patient on warfarin) Past Surgical History Rotator Cuff surgery Cholecystectomy with subsequent gallstone removal Hysterectomy and bilateral oophorectomy Multiple eye surgeries Vaginal prolapse status post surgical repair in 1984. Status post cataract removal in 2011 bilaterally. Status post colonoscopy in 2009 with polypectomy. Lumbar sugery in 2006 Family History Noncontributory Smoking History Former Smoker Social History Alcohol Use: Denies alcohol use Other Social History: Good social support, Local resident Ambulatory Status Independent Review of Systems Constitutional: Denies: Chills, Fever Respiratory: Reports: Pleuritic pain, Shortness of breath, Wheezing, Denies: Hemoptysis, Non-productive cough Cardiovascular: Denies: Chest pain Musculoskeletal: Denies: Back pain Complete sys rev & neg: except as marked. Physical Exam Initial Vital Signs Vital Signs (First) Date Time Temp Pulse Resp B/P Pulse Ox O2 Delivery O2 Flow Rate FiO2 03/06/17 11:39 36.1 84 20 106/69 98 Nasal Cannula 2 Initial VS: Reviewed, Vital signs normal Head / Eyes: Atraumatic ENT: Mucous membranes moist Abdomen / GI: Soft, No guarding, No rebound, No distention Extremities: Vascular intact, Neuro intact, No swelling, No tenderness Skin: Warm, Dry, No cyanosis Neurologic: Alert, Oriented, Nonfocal Psychiatric: Mood/affect normal, Behavior normal, Normal thought content Respiratory / Chest: Atraumatic, Breath sounds = bilat, No respiratory distress , No rales, No stridor Diminished Breath Sounds: Positive: Decreased bilateral Wheezing / Retractions: Positive: Wheeze insp/exp diffuse Rales / Rhonchi: Positive: Rhonchi diffuse Pleural rub heard best 5 cm superior and left lateral to the epigastric area. Cardiovascular: Heart rate NL, Regular rhythm, Heart sounds NL, No murmurs, No rubs Tenderness/Guarding/Rebound: Positive: Tender LUQ... (Moderate) Interpretation & Diagnostics Lab Results Interpretation Test 03/06/17 13:39 Urine Color Yellow (YELLOW) Urine Appearance Clear (CLEAR,HAZY) Urine pH 5.5 (5.0-8.0) Urine Specific [place] 1.005 (1.003-1.035) Urine Protein Negativemg/dL (NEG,TRACE) Urine Glucose (UA) Negativemg/dL (NEGATIVE) Urine Ketones Negativemg/dL (NEGATIVE) Urine Occult Blood Negative (NEGATIVE) Urine Nitrite Negative (NEGATIVE) Urine Bilirubin Negative (NEGATIVE) Urine Urobilinogen Normalmg/dL (NORMAL) Urine Leukocyte Esterase Negative (NEGATIVE) Urine RBC 0-2/hpf (0-2) Urine WBC 0-5/hpf (0-5) Urine Epithelial Cells Occasional/hpf (NONE-MOD) Urine Crystals None seen (NONE SEEN) Urine Bacteria Few/hpf (NONE-FEW) Urine Hyaline Casts None/lpf (NONE) Urine Granular Casts None seen (NONE SEEN) Urine Waxy Casts None seen (NONE SEEN) Urine Red Blood Cell Casts None seen (NONE SEEN) Urine White Blood Cell Casts None seen (NONE SEEN) Urine Mucus None seen (None Seen) Urine Trichomonas None seen (NONE SEEN) Urine Yeast None (NONE SEEN) Urinalysis Comment None Urine Culture Reflexed Not indicated Re-Eval/Medical Decision Med Decision/Clinical Course With a workup done by Dr. Sanchez yesterday it is highly unlikely that the patient presents today with a pulmonary embolism, with any other pulmonary pathology other than the pleuritis as described by Dr. Sanchez. With her history of urinary incontinence a UA was done to rule out UTI which was negative. After long discussion with the patient and family believe that her constellation of symptoms is likely related to an exacerbation of her COPD. This reason she was given a DuoNeb treatment along with 60 mg of prednisone. She will be sent home on a prednisone taper. Counseled Regarding: Diagnosis, Lab results, Need for follow-up, When/why to return to ED Discharge & Departure Impression: Primary Impression: COPD exacerbation Additional Impression: Pleuritic chest pain Disposition: Home Discharge Condition All VS Reviewed: Yes Condition: Stable Patient Instructions: COPD (Chronic Obstructive Pulmonary Disease) (ED) Additional Instructions: You came to the emergency department today with repeat symptoms of shortness of breath along with new symptoms of urinary incontinence and tightness in the upper airways. Based on Dr. Sanchez's workup yesterday the emergency department we are not concerned for urinary embolism or other pulmonary pathology at this time. You do have a substernal pleural rub as we discussed in the room, however this is likely a result of chronic disease, not anything that needs to be worked up in the emergency department at this time. A urinalysis was obtained due to your history of incontinence, however this was negative. I am not concerned for urinary tract infection at this time. It appears that the constellation of symptoms is likely related to an exacerbation of your COPD. For this reason given a dose of prednisone here in the ED, which you will continue taking as an outpatient. I would like you to take 40 mg starting tomorrow for 2 days, then take 20 mg for 2 days, then take 10 mg for 2 days. Continue taking her pain medication as previously prescribed. Please make an appointment with your primary care doctor as soon as possible. Please return to the emergency department if you experience high spiking fever, or the your shortness of breath is such that it is not controlled by albuterol or your other inhalers that you are currently taking, and you require higher levels of oxygen (over 3L) Referrals: Ulises Chou DO (PCP) Attending Statement Patient seen and examined. Area documentation as above. Answered all questions reassured regarding [id number] nature of pain. Doubt UTI but we will certainly contact her should urine culture return positive copies to: Ulises Chou Adam J DO Mar 06, 2017 12:39 Cynthia Maurer MD Mar 06, 2017 14:56
[2017-03-06] MEDS ORDERED: PRE20 PO (14:19)
[2017-03-06 14:47] VITALS: BP 99/42; PULSE 66; RESP 18; O2SAT 97
== END 2017-03-06 14:40 | disposition home or self-care (01) ==
LOC: SED 11:35
DX: J44.1 Chronic obstructive pulmonary disease with (acute) exacerbation (principal); R07.1 Chest pain on breathing; M79.7 Fibromyalgia; K21.9 Gastro-esophageal reflux disease without esophagitis; Z86.711 Personal history of pulmonary embolism; Z87.891 Personal history of nicotine dependence; Z79.01 Long term (current) use of anticoagulants; Z88.2 Allergy status to sulfonamides; Z88.1 Allergy status to other antibiotic agents
CPT/HCPCS: 81000; 94664; 99284; J7620

== ENCOUNTER 2017-04-29 17:03 | Emergency (ER) | payer MEDICARE ==
[~2017-04-29] VITALS: Ht 167.6 cm; Wt 88.2 kg
[~2017-04-29 17:03] MED LIST changes: +PRE20 PO
[2017-04-29 17:08] VITALS: BP 114/62; PULSE 82; RESP 24; O2SAT 98
--- NOTE | 2017-04-29 17:54 | DRSVH ---
PROCEDURE: X-RAY CHEST ONE VIEW, PORTABLE ([id number]) INDICATIONS: SHORT OF BREATH TECHNIQUE: One view of the chest was acquired. COMPARISON: [facility], CR, XR CHEST 1VW (PORTABLE), 03/06/2017, 0:11. FINDINGS: Surgical changes and devices: None. Lungs and pleura: No pleural effusions or pneumothorax. Lungs are clear. Probable upper lobe emphys ematous changes are noted. Mediastinum: Mediastinal contours appear normal. Heart size is normal. Bones and chest wall: No suspicious bony lesions. Overlying soft tissues appear unremarkable. IMPRESSION: No acute cardiopulmonary disease process. Dictated by: Belinda Hernandez MD, PhD on 04/29/2017 at 17:51 Approved by: Belinda Hernandez MD, PhD on 04/29/2017 at 17:52
[2017-04-29 17:58] LABS: BASOPHILS % (AUTO) 0.7 % (0-3); EOSINOPHILS % (AUTO) 4.1 % (0-5); MONOCYTES % (AUTO) 8.6 % (4-12); Mean Corpuscular Hemoglobin 27.1 pg (27.0-35.0); Mean Corpuscular Volume 84.1 fL (81-100); NEUTROPHILS % (AUTO) 56.3 % (40-74); Platelet Count 167 bil/L (150-400)
[2017-04-29 17:59] VITALS: BP 126/64; PULSE 79; O2SAT 100
--- NOTE | 2017-04-29 18:09 | ED.REPORT ---
HPI-General Illness Date of Service Apr 29, 2017 ED Provider: Micheal Blum MD Patient is a 61 year old female with a history of COPD and prior PE on Warfarin who presents to the ED complaining of increased shortness of breath, wheezing onset two weeks ago. Associated symptoms include mild lightheadedness, dyspnea on exertion, a productive cough. She reports that she has been having to use her emergency inhaler and has been increasing her normal nebulizer doses of medication without relief. The patient states that this feels similar to when she has a COPD exacerbation. She has not had any chest pain. She has not had any lower extremity swelling or calf tenderness. She has been taking her Coumadin and this does not feel like her previous pulmonary embolism. Nursing Notes Stated Complaint: SHORTNESS OF BREATH/SENT BY URGENT CARE Chief Complaint: Respiratory Complaints Nursing Notes Reviewed: Yes Allergies: Coded Allergies: Sulfa (Sulfonamide Antibiotics) (Verified Allergy, Severe, 03/05/17) doxycycline (Verified Allergy, Unknown, 03/05/17) Scheduled Azithromycin (Zithromax (Z-Jaden)) 250 Mg Tablet 250 MG PO DIRECTED Take two tablets by mouth on day 1, then take one tablet daily on days 2 through 5. Budesonide/Formoterol 160-4.5 mcg Inh (Symbicort 160-4.5 mcg Inh) 120 Puff Inhaler 2 PUFF INHALATION BID Citalopram (Citalopram) 20 Mg Tablet 40 MG PO DAILY Morphine Sulfate (Morphine Sulfate) 15 Mg Tablet 15 MG PO BID Prednisone (PredniSONE) 20 Mg Tablet 20 MG PO DAILY Take 40 mg for 2 days, 20 mg for 2 days, 10 mg for 2 days Prednisone (PredniSONE) 20 Mg Tablet 40 MG PO DAILY Trazodone (Trazodone) 50 Mg Tablet 100 MG PO HS Warfarin Sodium (Warfarin Sodium) 5 Mg Tablet 10 MG PO TU,WFSASU Warfarin Sodium (Warfarin Sodium) 5 Mg Tablet 7.5 MG PO THUR Scheduled PRN Albuterol Neb Soln (Albuterol Neb Soln) 2.5 Mg/3 Ml Vial.neb 2.5 MG INHALATION Q4H PRN PRN For Shortness of Breath Oxycodone (Roxicodone) 5 Mg Tablet 15 MG PO Q4H PRN PRN For Pain Miscellaneous Medications Albuterol Sulfate (Proair Respiclick) 90 Mcg Aer.pow.ba 90 MCG IH Polyethylene Glycol 3350 (Miralax) 17 Gm Powd.pack 17 GM PO General Time Seen by MD: 17:30 Chief Complaint Breathing problem Hx Obtained From: Patient Arrived By: Walk-in Sudden in Onset?: No Onset Occurred: More than a week ago... (2 weeks) Symptom Duration: Since onset Severity: Current: No pain currently Similar Sx Previous: Yes Past Medical History Past Medical History Notes: [employer] Dr. Ay[employer] Dr. Gerardo Past Medical History 1. COPD (severe, O2 dependent, with history of chronic hypoxic hypercapnic respiratory failure, uses Trilogy device at home, FEV1 of 33%, and DLCO 33%) 2. Spinal stenosis. 3. Fibromyalgia. 4. History of endometriosis, status post hysterectomy and bilateral oophorectomy. 5. GERD. 6. Questionable history of peptic ulcer disease. 7. History of retinal hemorrhage status post multiple eye surgeries. 8. Degenerative joint disease. 9. Hx of pulmonary embolism x2 (most recent pulmonary embolus was October 2016 with right-sided emboli, lifelong anticoagulation recommended-patient on warfarin) Past Surgical History Rotator Cuff surgery Cholecystectomy with subsequent gallstone removal Hysterectomy and bilateral oophorectomy Multiple eye surgeries Vaginal prolapse status post surgical repair in 1984. Status post cataract removal in 2011 bilaterally. Status post colonoscopy in 2009 with polypectomy. Lumbar sugery in 2006 Family History Noncontributory Smoking History Former Smoker Social History Alcohol Use: Denies alcohol use Other Social History: Good social support, Local resident Ambulatory Status Independent Review of Systems Full Review of Systems Respiratory: Reports: Dyspnea on exertion, Prod cough, green, Shortness of breath Musculoskeletal: Reports: Extremity swelling Neurologic: Reports: Lightheaded Complete sys rev & neg: except as marked. Physical Exam Vital Signs Vital Signs Date Time Temp Pulse Resp B/P Pulse Ox O2 Delivery O2 Flow Rate FiO2 04/29/17 20:38 84 118/70 99 Nasal Cannula 2 04/29/17 19:00 79 129/75 99 Nasal Cannula 2 04/29/17 17:59 79 126/64 100 Nasal Cannula 2 04/29/17 17:08 37.0 82 24 114/62 98 Nasal Cannula 2 Initial VS: Reviewed General/Constitutional: Awake, Alert Head / Eyes: Atraumatic, Normocephalic, PERRL, EOMI ENT: Atraumatic, Airway patent, Mucous membranes moist Respiratory / Chest: Atraumatic, No respiratory distress Wheezing / Retractions: Positive: Wheezing expiratory markedly decreased breath sounds throughout both lung [place] Cardiovascular: Heart rate NL, Regular rhythm, Heart sounds NL, No gallop, No murmurs, No rubs Abdomen: Atraumatic, Soft, Non-tender, No distention Lower Extremity / Pelvis / MS: Atraumatic, No swelling, Non-tender Skin: Atraumatic, Color NL, No rash, Warm, Dry well profused skin Neurologic: Oriented X3, Speech NL Psychiatric: Affect NL, Mood NL Interpretation & Diagnostics Lab Results Interpretation Result Diagram: 04/29/17 1735 04/29/17 1735 Test 04/29/17 17:35 04/29/17 18:08 White Blood Count 4.4th/mm3 (3.8-10.1) Red Blood Count 4.28mil/mm3 (3.90-5.20) Hemoglobin 11.6g/dL (12.0-15.6) Hematocrit 36.0% (35.0-46.0) Mean Corpuscular Volume 84.1fL (81-100) Mean Corpuscular Hemoglobin 27.1pg (27.0-35.0) Mean Corpuscular Hemoglobin Concent 32.2% (32.0-37.0) Red Cell Distribution Width 13.7% (12.3-15.4) Platelet Count 167bil/L (150-400) Neutrophils (%) (Auto) 56.3% (40-74) Lymphocytes (%) (Auto) 30.1% (14-46) Monocytes (%) (Auto) 8.6% (4-12) Eosinophils (%) (Auto) 4.1% (0-5) Basophils (%) (Auto) 0.7% (0-3) Prothrombin Time 22.5sec (8.1-12.5) Prothromb Time International Ratio 2.07ratio Sodium Level 137mEq/L (134-144) Potassium Level 4.3mEq/L (3.5-5.2) Chloride Level 97mEq/L (97-108) Carbon Dioxide Level 28mmol/L (18-29) Blood Urea Nitrogen 8mg/dL (8-27) Creatinine 0.83mg/dL (0.57-1.00) Estimat Glomerular Filtration Rate 90mL/min (>59) Glucose Level 89mg/dL (60-99) Calcium Level 9.0mg/dL (8.5-10.1) Total Bilirubin 0.5mg/dL (0.0-1.2) Aspartate Amino Transf (AST/SGOT) 28U/L (0-50) Alanine Aminotransferase (ALT/SGPT) 18U/L (0-32) Alkaline Phosphatase 122U/L (25-165) Troponin T < 0.010ug/L (0.0-0.011) Pro-B-Type Natriuretic Peptide 139.3pg/mL (0-287) Total Protein 7.1g/dL (6.4-8.4) Albumin 3.9g/dL (3.4-5.0) Hold Vergara Top Tube Received (Received) ECG Interpretation ECG Interpretation: anteriorseptal Q waves no ST segment elevation no acute T wave abnormalities Interpreted by: ED physician Normal ECG Interpretation: Normal rate (78), Normal sinus rhythm X-Ray Chest Interpretation Chest Xray Interpretation: IMPRESSION: No acute cardiopulmonary disease process. Dictated by: Belinda Hernandez MD, PhD on 04/29/2017 at 17:51 Approved by: Belinda Hernandez MD, PhD on 04/29/2017 at 17:52 Interpretation / Wet Read by: Interpret - Radiologist Re-Eval/Medical Decision Med Decision/Clinical Course Patient is a 61 year old female with a history of COPD on 1-2 L of oxygen by nasal cannula and prior PE on Warfarin who presents to the ED complaining of increased shortness of breath, wheezing onset two weeks ago. Associated symptoms include mild lightheadedness, dyspnea on exertion, a productive cough. She reports that she has been having to use her emergency inhaler and has been increasing her normal nebulizer doses of medication without relief. The patient states that this feels similar to when she has a COPD exacerbation. She has not had any chest pain. She has not had any lower extremity swelling or calf tenderness. She has been taking her Coumadin and this does not feel like her previous pulmonary embolism. Here in the emergency department the patient was hemodynamically stable and afebrile. She had good oxygen saturation on her baseline 1-2 L by nasal cannula. Examination revealed markedly decreased air movement throughout both lung [place] and scattered expiratory wheezing. She was treated with [id number] DuoNeb as well as 125 mg of IV methylprednisolone and reported dramatic improvement in her symptoms. After treatment the patient was ambulated on pulse oximetry and maintain oxygen saturation greater than 93%. She reported mild dyspnea with exertion though stated that she felt much better. EKG: sinus rhythm, 78bpm, normal axis, normal intervals, anterioseptal Q waves present, no ST segment elevation, no acute T wave abnormalities, no acute changes when compared to prior EKG from 03/05/17 CXR: Obtained, reviewed and interpreted by myself shows no evidence of infiltrates, effusions or pneumothorax. Cardiac and mediastinal silhouette normal. No bony or soft tissue abnormalities. Labs: CBC unremarkable, CMP unremarkable, trop negative, BNP within normal limits, INR is therapeutic at 2.07 Overall presentation is most consistent with COPD exacerbation. I did consider pulmonary embolism in this patient however she is not expressing pleuritic chest pain and is without tachycardia or findings suggestive of DVT. Furthermore, she is already therapeutic on Coumadin without any recent major pulmonary embolus risk factors. Her overall presentation is overwhelmingly consistent with a COPD exacerbation and I do not feel that workup for pulmonary embolism is indicated at this time. Initial screening EKG and troponin are unconvincing for acute coronary syndrome and does not patient is not suggestive thereof. She is now significantly improved and states that she would like to go home. She has been discharged with a course of azithromycin, prednisone and advised to use her albuterol inhaler every 2-4 hours for the next 24 hours until she begins to experience the effects of systemic steroids. She will also continue her regular nebulizer treatments as prescribed and follow closely with her primary care physician. Prior to discharge follow-up and return precautions were reviewed in detail with the patient who verbalized understanding and agreement with the plan. The patient was discharged in stable condition. Time of Eval: 20:00 Re-Evaluation/Progress Note: Discussed results and plan for discharge. Patient understands and agrees to plan. All questions were addressed. Counseled Regarding: Diagnosis, Lab results, Need for follow-up, When/why to return to ED Discharge & Departure Primary Impression: COPD exacerbation Additional Impressions: History of pulmonary embolism Shortness of breath Wheezing Anticoagulated on Coumadin Disposition: Home Discharge Condition All VS Reviewed: Yes Condition: Stable Patient Instructions: COPD (Chronic Obstructive Pulmonary Disease) (ED) Additional Instructions: Thank you for seeking care at the emergency room. Our primary goal today in the Emergency Department was to evaluate you for any life-threatening conditions. Your evaluation was reassuring. Take the full course of the steroids and antibiotics. Continue to use your home oxygen as directed. Use you home nebulizer as directed. Use two puffs of your home albuterol every 4 hours over the next 24 hours. You should follow-up with your primary doctor in the next week. You should return to the Emergency Department immediately if you develop fevers , worsening cough, worsening shortness of breath, chest pain or any other concerning signs or symptoms. Thank you for letting us partake in your care today. Referrals: Ulises Chou DO (PCP) Jacinto Attestation Portions of this note were transcribed by Jessica Christensen. I, Dr. Blum personally performed the history, physical exam and medical decision-making; I reviewed and confirmed the accuracy of the information in the transcribed note. Signed by: Jacinto Dorado, 04/29/17 copies to: Ulises Chou Beck O MD Apr 29, 2017 18:09 Elizabeth Christensen Apr 29, 2017 18:43
[2017-04-29] MEDS ORDERED: Albuterol-Ipratropium 3 mL Inhalation Solution NEB ONE (18:10)
[2017-04-29] MEDS ORDERED: MethylprednisoLONE Sodium Succinate 62.5 mg/mL 2 mL Inj IVPUSH ONE (18:10)
[2017-04-29 18:20] LABS: TROPONIN T < 0.010 ug/L (0.0-0.011)
[2017-04-29 18:50] LABS: INR 2.07 ratio
[2017-04-29 19:00] VITALS: BP 129/75; PULSE 79; O2SAT 99
[2017-04-29] MEDS ORDERED: AZIT250T4 PO (19:57)
[2017-04-29] MEDS ORDERED: PRE20 PO (19:57)
[2017-04-29 20:38] VITALS: BP 118/70; PULSE 84; O2SAT 99
== END 2017-04-29 20:39 | disposition home or self-care (01) ==
LOC: SED 17:03
DX: J44.1 Chronic obstructive pulmonary disease with (acute) exacerbation (principal); Z79.01 Long term (current) use of anticoagulants; K21.9 Gastro-esophageal reflux disease without esophagitis; Z86.711 Personal history of pulmonary embolism; Z87.891 Personal history of nicotine dependence; Z90.710 Acquired absence of both cervix and uterus; Z88.1 Allergy status to other antibiotic agents; Z88.2 Allergy status to sulfonamides
CPT/HCPCS: 36415; 71010; 80053; 83880; 84484; 85025; 85610; 93005; 96374; 99285; J2930; J7620